=== PATIENT | male | born 1975 | race Caucasian/White ===

== ENCOUNTER 2023-11-12 17:21 | Emergency (ER) | payer SELFPAY ==
[2023-11-12] VITALS (19 sets, daily range): BP systolic 111–160; BP diastolic 53–91; PULSE 99–109; RESP 13–24; TEMP 36.8; O2SAT 96–99; BMI 46.1
--- NOTE | 2023-11-12 18:03 | ECG_ITS ---
[facility] Test Date: 2023-11-12 Pat Name: Eduardo Leon Department: Room: Gender: Male Equity Manager: : 1975 Requested By: Deandre Feldman Order Number: [id number] Blaise MD: Darrion Henry M.D. Measurements Intervals [place] Rate: 108 P: 0 KS: 0 QRS: -22 QRSD: 77 T: 15 QT: 342 QTc: 459 Interpretive Statements SUPRAVENTRICULAR TACHYCARDIA LOW QRS VOLTAGE IN PRECORDIAL LEADS [QRS DEFLECTION < 1.0 mV IN CHEST LEADS] INFERIOR MYOCARDIAL INFARCTION , PROBABLY OLD [40+ ms Q WAVE AND/OR ST/T ABNORMALITY IN II/aVF] ANTEROSEPTAL MYOCARDIAL INFARCTION , OF INDETERMINATE AGE [40+ ms Q WAVE IN V1-V4] No previous ECG available for comparison Electronically Signed On 11-14-2023 18:19:39 CDT by Darrion Henry M.D. [id number]
--- NOTE | 2023-11-12 18:03 | XRR_ITS ---
PROCEDURE INFORMATION: Exam: XR Chest Exam date and time: 11/12/2023 6:16 PM Age: 48 years old Clinical indication: Other: Lle edema; Additional info: Peripheral edema, distant lung sounds TECHNIQUE: Imaging protocol: Radiologic exam of the chest. Views: 1 view. COMPARISON: CT neck w con* [id number] 03/19/2017 8:39 AM FINDINGS: Lungs: Hypoinflated lungs. Pleural spaces: No pleural effusion or pneumothorax noted. Heart/Mediastinum: There is no cardiomegaly. Bones/joints: No acute osseous abnormality. Intraperitoneal space: There is no free intraperitoneal gas. XR/XR chest 1V portable [id number] IMPRESSION: No acute cardiopulmonary disease.
--- NOTE | 2023-11-12 18:04 | ED_ITS ---
HPI - Extremity Problem 2 General: Chief complaint: Extremity Problem,Nontraumatic Stated complaint: left leg swollen Time Seen by Provider: 11/12/23 17:27 Source: patient and family Mode of arrival: wheelchair Limitations: no limitations History of Present Illness: Patient is a 48-year-old male who presents to the emergency department with greater than 6 months of left lower extremity edema, stating that now he is starting to have swelling in his right leg as well. Specifically over the past couple weeks the pain and swelling has severely worsened, states he has had multiple rounds of antibiotics for this with no improvement. Denies any past medical history whatsoever, though he states that he has not followed up with a primary care provider in some time. Pain severely worsened with ambulation and weightbearing, and he notes that the swelling has extended all the way up to his groin and lower abdominal region. Denies history of congestive heart failure or liver cirrhosis. He is not having any chest pain, abdominal pain, fevers, nausea or vomiting. He is stating that he has felt somewhat short of breath, but states he thinks it is just because he is fat. Does not report taking any medications. MD Complaint: extremity pain and extremity swelling Onset (ago): month(s) Pain Consistency: constant Location: left and lower extremity Radiation: proximal Exacerbating factors: range of motion and weight bearing Associated symptoms: Reports short of breath; Deny chest pain or fever(s) Related Data Allergies Allergy/AdvReac Type Severity Reaction Status Date / Time No Known Allergies Allergy Verified 11/12/23 21:28 Review of Systems 2 General: Reports: 10 or more systems reviewed and unremarkable except in HPI and below Const: Denies: fever(s), chills or fatigue Eyes: Denies: change in vision ENMT: Denies: throat pain, ear or mastoid pain or nasal discharge Card: Denies: chest pain, palpitations, swelling of feet/ankles or lightheadedness Resp: Reports: dyspnea; Denies: productive cough or wheezing GI: Denies: abdominal pain, nausea, vomiting, diarrhea or constipation : Denies: flank pain, difficulty urinating, dysuria or urinary frequency Musc: Reports: extremity pain, extremity swelling and other (Left lower extremity redness); Denies: neck pain, back pain or joint pain Neuro: Denies: headache(s), numbness in extremities or weakness in extremities Physical Exam 2 Const: COMMON NORMALS: no acute distress, patient oriented x3 and no limitations GENERAL APPEARANCE: cooperative, comfortable and well developed NUTRITIONAL APPEARANCE: obese morbidly obese ORIENTATION/CONSCIOUSNESS: Yes awake, Yes oriented to person, Yes oriented to place and Yes oriented to time OTHER: Jaundiced HENMT: COMMON NORMALS: normocephalic, atraumatic and hearing grossly normal bilaterally HEAD & SCALP: normocephalic and atraumatic Eye: COMMON NORMALS: Equal, round and reactive pupils present and EOMs intact bilaterally SCLERA: scleral abnormal Laterality of scleral abnormality: positive bilateral scleral icterus PUPIL: Yes Equal, round and reactive pupils present Neck/C-Spine: COMMON NORMALS: full ROM, supple and no JVD Resp: COMMON NORMALS: normal respiratory effort, No retractions, No use of accessory muscles and clear to auscultation bilaterally AUSCULTATION: clear to auscultation bilaterally OTHER: Diminished breath sounds throughout Cardio: COMMON NORMALS: no JVD, regular rate, regular rhythm, No clicks present (Cardio) and No rub (Cardio) RATE: regular rate RHYTHM: regular rhythm HEART SOUNDS: Murmur heart sound present systolic Intensity: III/ Characteristics: blowing GI: COMMON NORMALS: Soft to palpation and non-tender INSPECTION: Yes central obesity PALPATION: Yes Soft to palpation RECTAL EXAM: Yes deferred Extremity: NARRATIVE EXTREMITY EXAM: Left lower extremity has 4+ pitting edema appreciable up to the knee, rest of exam past this limited due to patient's constrictive clothing. There are venous stasis changes as well as diffuse erythema from the foot up to the knee. Areas of skin breakdown scattered around the left ankle. The left lower extremity is diffusely tender to palpation, with limitation of range of motion secondary to the swelling. Does not endorse any distal sensory changes though pulses unable to be palpated secondary to the swelling Neuro: COMMON NORMALS: patient oriented x3, moves all extremities, no focal motor deficits and no sensory deficits noted SENSORIUM/ORIENTATION: Yes oriented to person, Yes oriented to place and Yes oriented to time Psych: COMMON NORMALS: mental status grossly normal and Normal thought process present THOUGHT PROCESS: Normal thought process present Course 2 Vital Signs: Vital signs: Vital Signs Temperature 98.2 F 11/12/23 17:46 Pulse Rate 108 H 11/12/23 22:00 Respiratory Rate 21 H 11/12/23 22:00 Blood Pressure 111/53 11/12/23 22:00 Pulse Oximetry 98 11/12/23 22:00 Oxygen Delivery Me thod Room Air 11/12/23 19:30 MDM - Extremity (Nontraumatic) Medical Decision Making This patient presented with left lower extremity swelling as his primary complaint, though this was noted to be chronic and worsening over the past 6 months, significantly worsening over the past week or so. He reported to me that he had no past medical history and does not see a regular doctor. On exam he was clearly jaundiced with scleral icterus, and the left lower extremity swelling was 4+ and pitting all the way up to the abdomen. EKG was obtained and reviewed with Dr. Sky, no acute STEMI though tachycardic rate 108. Patient had no complaints of chest pain, only some mild shortness of breath. CBC showed a white count of 20 as well as platelet count of 72. Lactic found to be elevated at 5.6, as well as total bilirubin elevation of 9.1. Synthetic liver function revealed an INR of 2.5, PT of 28, and PTT of 45.3. Suspect liver cirrhosis, and patient revealed to me that he is a 1 pints a day drinker of liquor. CT was obtained showing cirrhosis with moderate ascites, patient was not complaining of any hemoptysis or hematemesis, or severe retrosternal pain. Hepatitis panel negative. Discussed this patient thoroughly with both Dr. Sky and Dr. Chopra. Then spoke with Dr. Kapoor, hospitalist, who recommends patient be transferred for an MRCP as choledocholithiasis cannot be fully ruled out and we do not have these capabilities here at this time. Patient has not displayed any signs of altered mental status, family in room confirms that he has not had any issues with this. I spoke with Dr. Rey, hospitalist at [facility], who accepts patient for transfer. Patient has been started on Vanco and Zosyn due to the elevation in lactic, Dr. Rey has no further recommendations at this time. I discussed thoroughly with patient plan for transfer, all other questions and concerns addressed at this time and he is not complaining of any pain. Currently awaiting ambulance for ground transfer. Lab Data 11/12/23 18:11 11/12/23 18:52 Radiology Impressions Chest X-Ray 11/12/23 18:03 IMPRESSION: No acute cardiopulmonary disease. Abdomen/Pelvis CT 11/12/23 19:37 IMPRESSION: Cirrhosis with moderate ascites and recanalized umbilical vein. Multiple varices are noted. COMMENTS: Consistent with the [place] [employer]'s Incidental Findings Committee white paper (J Am Raymon Radiol 2018): Any incidental renal lesion less than 1 cm or classified as too small to characterize, or any incidental cystic renal lesion characterized as simple-appearing, is likely benign. No follow-up imaging is recommended for these lesions per consensus recommendations based on imaging criteria. Laboratory Results WBC 19.57 10^3/uL (3.29-11.43) H 11/12/23 18:11 RBC 3.50 10^6/uL (3.85-5.65) L 11/12/23 18:11 Hgb 12.50 g/dL (11.27-16.99) 11/12/23 18:11 Hct 37.1 % (37-53) 11/12/23 18:11 MCV 106.0 fl (82-101) H 11/12/23 18:11 MCH 35.7 pg (27-33) H 11/12/23 18:11 MCHC 33.7 g/dL (30-55) 11/12/23 18:11 RDW 16.0 % (12.1-15.1) H 11/12/23 18:11 Plt Count 72 10^3/cmm (157-399) L 11/12/23 18:11 MPV 10.7 fL (7.4-10.4) H 11/12/23 18:11 Lymph % (Auto) Not Reportable 11/12/23 18:11 [place] % (Auto) Not Reportable 11/12/23 18:11 Lymph # (Auto) Not Reportable 11/12/23 18:11 [place] # (Auto) Not Reportable 11/12/23 18:11 Total Counted 100 (0-100) 11/12/23 18:11 Atypical Lymphs % 0.0 % (0-5) 11/12/23 18:11 Absolute Neutrophils 13.7 10^3/cmm (1.4-6.5) H 11/12/23 18:11 Segmented Neutrophils 66 % 11/12/23 18:11 Band Neutrophils 4.0 % 11/12/23 18:11 Absolute Lymphocytes 2.3 10^3/cmm (1.2-3.4) 11/12/23 18:11 Lymphocytes (Manual) 12 % 11/12/23 18:11 Monocytes (Manual) 15.0 % 11/12/23 18:11 Absolute Monocytes 2.9 10^3/cmm (0.1-0.6) H 11/12/23 18:11 Eosinophils (Manual) 0 % 11/12/23 18:11 Absolute Eosinophils 0.0 10^3/cmm (0.0-0.7) 11/12/23 18:11 Basophils (Manual) 0.0 % 11/12/23 18:11 Absolute Basophils 0.0 10^3/cmm (0.0-0.2) 11/12/23 18:11 Metamyelocytes 1.0 % 11/12/23 18:11 Myelocytes 1.0 % 11/12/23 18:11 Promyelocytes 1.0 % 11/12/23 18:11 Smudge Cells Trace 11/12/23 18:11 Platelet Estimate Decreased (Normal) 11/12/23 18:11 Anisocytosis 1+ H 11/12/23 18:11 Macrocytosis 2+ H 11/12/23 18:11 PT 28.00 SECONDS (12.1-14.9) H 11/12/23 18:52 INR 2.51 (0.8-1.2) H 11/12/23 18:52 APTT 45.3 SECONDS (23.9-36.7) H 11/12/23 18:52 Sodium 131 mmol/L (136-145) L 11/12/23 18:52 Potassium 3.1 mmol/L (3.5-5.1) L 11/12/23 18:52 Chloride 95 mmol/L (98-107) L 11/12/23 18:52 Carbon Dioxide 21 mmol/L (22-29) L 11/12/23 18:52 Anion Gap 18.1 (5-19) 11/12/23 18:52 BUN 8 mg/dL (6-20) 11/12/23 18:52 Creatinine 0.4 mg/dL (0.7-1.2) L 11/12/23 18:52 GFR Calculation 229.6 mL/min (90-130) H 11/12/23 18:52 Glucose 137 mg/dL (65-115) H 11/12/23 18:52 Calculated Osmolality 272 mOsm/kg (285-295) L 11/12/23 18:52 Lactic Acid 5.6 mmol/L (0.5-2.2) H* 11/12/23 18:52 Lactic Acid (Sepsis) 3.9 mmol/L (0.5-2.2) H 11/12/23 22:06 Calcium 7.3 mg/dL (8.5-10.5) L 11/12/23 18:52 Total Bilirubin 9.1 mg/dL (0.15-1.2) H* 11/12/23 18:52 AST 73 U/L (0-40) H 11/12/23 18:52 ALT 29 U/L (0-41) 11/12/23 18:52 Alkaline Phosphatase 139 U/L (40-130) H 11/12/23 18:52 NT-Pro-B Natriuret Pep 841 pg/mL (0-125) H 11/12/23 18:52 Total Protein 7.1 g/dL (6.6-8.7) 11/12/23 18:52 Albumin 2.5 g/dL (3.5-5.2) L 11/12/23 18:52 Globulin 4.6 g/dL (1.3-4.6) 11/12/23 18:52 Hepatitis A IgM Ab Non-reactive (Nonreactive) 11/12/23 18:52 Hep Bs Antigen Non-reactive (Nonreactive) 11/12/23 18:52 Hep B Core IgM Ab Non-reactive (Nonreactive) 11/12/23 18:52 Hepatitis C Antibody Non-reactive (Nonreactive) 11/12/23 18:52 All radiology interpretation(s) finalized by discharge Discharge Plan Discharge Condition: Stable Referrals: Anthony Arauz NP [Family Provider] - Coding Level of Care Code ED Bead Inspector for Yareli Morse
[2023-11-12 18:20] LABS: Hematocrit 37.1 % (37-53); Mean Corpuscular HGB Conc 33.7 g/dL (30-55); Mean Corpuscular Hemoglobin 35.7 pg (27-33); Mean Platelet Volume 10.7 fL (7.4-10.4); Platelet Count 72 10^3/cmm (157-399); White Blood Count 19.57 10^3/uL (3.29-11.43)
[2023-11-12 18:54] LABS: Slide Review Slide Review Perform
[2023-11-12 18:55] LABS: Absolute Neutrophil 13.7 10^3/cmm (1.4-6.5); Absolute Segmented Neutrophil 12.9 10/cmm (1.6-7.1); Anisocytosis 1+; Band Neutrophils Absolute 0.8 10^3/cmm (0.0-1.2); Eosinophils 0 %; Lymphocytes 12 %; Lymphocytes Absolute 2.3 10^3/cmm (1.2-3.4); Macrocytosis 2+; Monocytes Absolute 2.9 10^3/cmm (0.1-0.6); Platelet Estimate Decreased (Normal); Segmented Neutrophils 66 %; Smudge Cells Trace; Total Cells Counted 100 (0-100)
[2023-11-12 19:32] LABS: INR 2.51 (0.8-1.2)
[2023-11-12 19:33] LABS: Partial Thromboplastin Time 45.3 SECONDS (23.9-36.7)
--- NOTE | 2023-11-12 19:37 | CTR_ITS ---
PROCEDURE INFORMATION: Exam: CT Abdomen And Pelvis With Contrast Exam date and time: 11/12/2023 8:08 PM Age: 48 years old Clinical indication: Abdominal pain; Additional info: Abd swelling, hold for CR TECHNIQUE: Imaging protocol: Computed tomography of the abdomen and pelvis with contrast. Radiation optimization: All CT scans at this facility use at least one of these dose optimization techniques: automated exposure control; mA and/or kV adjustment per patient size (includes targeted exams where dose is matched to clinical indication); or iterative reconstruction. Contrast material: OMNI 350; Contrast volume: 100 ml; Contrast route: INTRAVENOUS (IV); COMPARISON: CR (CHEST, ) 11/12/2023 6:16 PM RADIATION DOSE METRICS: Total DLP (mGy-cm): 1706 FINDINGS: Lungs: Lung bases are unremarkable. Liver: Liver cirrhosis with a 13 mm hypodensity in the right lobe which may represent a cyst. Gallbladder and biliary ducts: No intrahepatic or extrahepatic biliary ductal dilatation. The gallbladder is unremarkable with no radioopaque stone. Pancreas: The pancreas is unremarkable. Spleen: Splenomegaly. Adrenal glands: Adrenal glands are unremarkable. Kidneys and ureters: No hydronephrosis or nephrolithiasis. Bilateral simple renal cysts are present, as well as other subcentimeter hypodensities which are too small to characterize. Stomach and bowel: The stomach is not fully distended. Small and large bowel are normal in caliber without evidence of obstruction. Appendix: Normal appendix. Intraperitoneal space: Moderate ascites with perihepatic, perisplenic and pelvic fluid collection. Vasculature: Recanalized umbilical vein and multiple varices predominantly the esophageal varices are noted. There are subcutaneous varices also noted. There is no aortic aneurysm. Lymph nodes: No pathologically enlarged lymph nodes (by short axis size criteria). Urinary bladder: No focal wall thickening of the urinary bladder. Reproductive: Visualized portions of the male reproductive tract are unremarkable, though routine CT is limited in this regard. Bones/joints: No acute osseous abnormality. Soft tissues: There is a small fat containing umbilical hernia. Diffuse soft tissue edema. CT/CT abdomen pelvis w con* [id number] IMPRESSION: Cirrhosis with moderate ascites and recanalized umbilical vein. Multiple varices are noted. COMMENTS: Consistent with the [employer] [employer]'s Incidental Findings Committee white paper (J Am Raymon Radiol 2018): Any incidental renal lesion less than 1 cm or classified as too small to characterize, or any incidental cystic renal lesion characterized as simple-appearing, is likely benign. No follow-up imaging is recommended for these lesions per consensus recommendations based on imaging criteria.
[2023-11-12 19:45] LABS: Alanine Aminotransferase 29 U/L (0-41); Albumin Level 2.5 g/dL (3.5-5.2); Alkaline Phosphatase 139 U/L (40-130); Anion Gap 18.1 (5-19); Aspartate Amino Transferase 73 U/L (0-40); Blood Urea Nitrogen 8 mg/dL (6-20); Calcium 7.3 mg/dL (8.5-10.5); Carbon Dioxide 21 mmol/L (22-29); Chloride 95 mmol/L (98-107); Creatinine Clr Calc Pharmacy 355.9978; Globulin 4.6 g/dL (1.3-4.6); Glomerular Filtration Rate 229.6 mL/min (90-130); Glucose 137 mg/dL (65-115); NT Pro B Type Natriuretic Pept 841 pg/mL (0-125); Osmolality Calculated 272 mOsm/kg (285-295); Potassium 3.1 mmol/L (3.5-5.1); Sodium 131 mmol/L (136-145); Total Protein 7.1 g/dL (6.6-8.7)
[2023-11-12 19:58] LABS: Lactic Sepsis W/Reflex 5.6 mmol/L (0.5-2.2); Total Bilirubin 9.1 mg/dL (0.15-1.2)
[2023-11-12] MEDS: iohexol 350 mg/mL 500 mL Btl (per mL) IV (20:12)
[2023-11-12] MEDS: piperacillin-tazobactam 3.375 GM in sodium chloride 0.9% (plus) 50 ML IV (20:27)
[2023-11-12 20:58] LABS: Reflex Lactate Order REFLEX LACTIC ORDERD
[2023-11-12] MEDS: vancomycin 1,000 MG in sodium chloride 0.9% 250 ML 250 MG IV (21:28)
--- NOTE | 2023-11-12 21:46 | PC.NURSE ---
Assumed care of patient at 2124 from Jessika Benavides RN. Rounding with patient in room. He reports that he has no pain at this time and is doing well. Iv line flushed and new jacinta-guard applied to 20g iv cath in the LAC d/t blood leaking around insertion site. Pt denies pain at site. Flushes and pulls back without problems.
[2023-11-12 22:18] LABS: Hepatitis A Antibody IgM Non-Reactive (Nonreactive); Hepatitis B Core IgM Non-Reactive (Nonreactive); Hepatitis B Surface Antigen Non-Reactive (Nonreactive); Hepatitis C Virus Antibody Non-Reactive (Nonreactive)
[2023-11-12 22:32] LABS: Lactic Acid level (Lactate) 3.9 mmol/L (0.5-2.2)
[2023-11-12] MEDS: potassium chloride ER 20 mEq Tablet 40 MEQ PO (23:11)
[2023-11-12 23:46] LABS: Add Urine Microscopic? NO
[2023-11-12 23:48] LABS: Urine Appearance Clear (CLEAR)
--- NOTE | 2023-11-13 | PC.NURSE ---
@ [id number] report called to Dannielle joya rn at [facility].
[2023-11-13 00:02] LABS: UA Manual Slide Review YES; UA Slide Review UA Slide Review Perf; Urine Color Other (Yellow)
[2023-11-13 00:03] LABS: Add Urine Culture? No; Bacteria Urine TRACE /hpf; Hyaline Casts Urine 0-4 /lpf; Mucus Urine 2+ /hpf; RBC Urine 0-4 /hpf (0-2); Squamous Epithelial Cell Urine 0-4 /hpf (0-5)
[2023-11-13 00:04] LABS: Charge for UA Resulting for Rev
[2023-11-13 00:27] VITALS: BP 116/57; PULSE 98; RESP 21; O2SAT 97
[2023-11-13 00:33] VITALS: RESP 18
[2023-11-13] MEDS: morphine 4 mg/mL SDV 1 mL IVP (00:33)
== END 2023-11-13 00:40 | disposition short-term general hospital (02) ==
PROVIDERS: Emergency Provider Physician Assistant; Family Provider Nurse Practitioner Family
DX: R60.0 Localized edema (principal); R17 Unspecified jaundice
CPT/HCPCS: 36415; 71045; 74177; 80053; 80074; 81003; 83605; 83880; 85007; 85025; 85610; 85730; 87040; 93005; 96365; 96367; 96375; 99285; J2270; J2543; J3370; J7050

== ENCOUNTER 2023-11-18 13:14 | Inpatient (IN) | payer SELFPAY ==
[2023-11-18] VITALS (9 sets, daily range): BP systolic 118–149; BP diastolic 69–86; PULSE 83–103; RESP 16–18; TEMP 36.8–36.9; O2SAT 95–100; BMI 46.1; BMI 45.4
--- NOTE | 2023-11-18 14:08 | W.ED.EXTPRO ---
HPI - Extremity Problem General: Chief complaint: Wound/Laceration Stated complaint: LEFT LEG PAIN Time Seen by Provider: 11/18/23 13:49 History of Present Illness: 48-year-old man with recently diagnosed cirrhosis secondary to alcoholism who presents emergency room with a wound on his left leg. Apparently he was sent to [facility] for further workup for the cirrhosis and then was sent home. Family says that the wound care team there looked at the wound every day but did not do anything. He has redness of his leg with wounds on the front and back. These are weeping. He has pain associated with this. He appears jaundiced on exam. No known fevers. No altered mental status. No focal motor deficits. He is complaining of some generalized weakness. He has quite a bit of yellow drainage coming from the wounds. Related Data Allergies Allergy/AdvReac Type Severity Reaction Status Date / Time No Known Allergies Allergy Verified 11/18/23 13:26 Review of Systems Narrative: Constitutional symptoms: Negative except as documented in HPI. Skin symptoms: Negative except as documented in HPI. Eye symptoms: Negative except as documented in HPI. ENMT symptoms: Negative except as documented in HPI. Respiratory symptoms: Negative except as documented in HPI. Cardiovascular symptoms: Negative except as documented in HPI. Gastrointestinal symptoms: Negative except as documented in HPI. Genitourinary symptoms: Negative except as documented in HPI. Musculoskeletal symptoms: Negative except as documented in HPI. Neurologic symptoms: Negative except as documented in HPI. Psychiatric symptoms: Negative except as documented in HPI. Endocrine symptoms: Negative except as documented in HPI. [facility] ED PFSH: Medical History Hyperbilirubinemia Generalized weakness Hypercoagulable state Alcoholic cirrhosis Wound infection Physical Exam Narrative: EXAM NARRATIVE: General: Alert, no acute distress. Skin: Warm, dry. Patient appears jaundiced. There is a wound on the left lower extremity. Actually 2 wounds. 1 on the anterior and 1 on the posterior. There is skin squamatization. There is drainage. There is surrounding erythema. The erythema covers most of the calf and dawson area. Head: Normocephalic, atraumatic. Neck: Supple, trachea midline. Eye: Extraocular movements are intact. Ears, nose, mouth and throat: mucosa moist. Cardiovascular: Regular, Normal peripheral perfusion. Respiratory: Lungs are clear to auscultation, respirations are non-labored, breath sounds are equal, Symmetrical chest wall expansion. Gastrointestinal: Soft, Nontender, Non distended Musculoskeletal: Normal ROM, no deformity. Neurological: Alert and oriented, No focal neurological deficit observed. Psychiatric: Cooperative, appropriate mood & affect. Course Vital Signs: Vital signs: Vital Signs Temperature 98.2 F 11/18/23 13:22 Pulse Rate 100 11/18/23 14:38 Respiratory Rate 16 11/18/23 14:38 Blood Pressure 133/75 11/18/23 14:38 Pulse Oximetry 97 11/18/23 14:38 Oxygen Delivery Me thod Room Air 11/18/23 14:38 MDM - Extremity (Nontraumatic) Medical Decision Making Medical decision making: Differential diagnosis including but not limited to and based on the above HPI, review of systems and physical exam: In this patient with a wound would have concern for sepsis. Necrotizing fasciitis. Also with him having cirrhosis basic lab work to evaluate this including coags are being done. Orders placed to evaluate differential diagnosis based on the above differential, HPI and physical exam Lab Review: Laboratory results were reviewed and interpreted by myself the emergency room physician. Patient has a white count of 21,000. This is up from 19 last week. Hemoglobin is fairly normal at 12.4. Platelets are low at 46. Sodium is low at 125. This is lower than it was last week. He was up to the 130s. BUN/creatinine are normal 8 and 0.4. Bilirubin is high at 8. ISAT and ALT are 80 and 26. Alk phos is not elevated. CRP and ESR are quite elevated. X-ray of the tibia and fibula shows no acute fractures. No obvious air. There is a lot of soft tissue swelling. This was reviewed and interpreted by myself the emergency room physician. I also reviewed the radiology report. I reviewed the patient's medical record. Records from [place] have been requested. Model for End-Stage Liver Disease (Combined MELD) from [employer] on 11/18/2023 All calculations should be rechecked by clinician prior to use RESULT SUMMARY: 30 points MELD 3.0 72.7 % Estimated 90-day survival INPUTS: Equation ?> 2 = MELD 3.0 (currently recommended by OPTN) Age added to the liver transplant waiting list, years ?> 1 = >=8 Sex ?> 0 = Male Creatinine ?> 0.4 mg/dL Bilirubin ?> 8.1 mg/dL INR ?> 2.3 Sodium ?> 125 mEq/L Albumin ?> 1.9 g/dL Had dialysis twice, or 24 hours of CVVHD, within a week prior to the serum creatinine test ?> 0 = No MELDNa/MELD-Na Score for Liver Cirrhosis from [employer] on 11/18/2023 All calculations should be rechecked by clinician prior to use RESULT SUMMARY: 30 points MELD-Na Score 27 - 32% Estimated 90-Day Mortality INPUTS: Dialysis at least twice in the past week ?> 0 = No Creatinine ?> 0.4 mg/dL Bilirubin ?> 8.1 mg/dL INR ?> 2.3 Sodium ?> 125 mEq/L Reexamination: Patient has remained stable. No increased work of breathing. No altered mental status. No focal motor deficits. Wound continues to drain yellow drainage. Consultation: I spoke with Dr. Mcbride who is on-call for podiatry. He will evaluate the patient for possible debridement. CT scan was ordered to evaluate/rule out necrotizing fasciitis Consultation: I spoke with Dr. Spears who is on-call for the hospitalist service who agrees to admission. He recommends ordering FFP and vitamin K which has been done. Assessment and plan: Wound infection Possible sepsis Alcoholic cirrhosis Thrombocytopenia Hypercoagulability Hyperbilirubinemia ?Possible sepsis. Source to be his left lower extremity. Patient is on Keflex. Lactate is elevated but down from when he was here last. White count is elevated. Borderline tachycardia with a normal blood pressure. - holding on fluids at this point because patient appears fluid overloaded and his blood pressure is normal.. -Broad-spectrum antibiotics were administered. Zyvox and cefepime. -Sepsis quality measures. -Lactic acid with a reflex was ordered. -Blood cultures were ordered. ?MELD score with a fairly high mortality rate over the next 90 days. At around 30%. ?Vitamin K and FFP were ordered for hypercoagulability. -I discussed the patient with the hospitalist on-call who is admitting the patient. - Discussed findings and plan with patient. Answered any questions. - All laboratory values were reviewed and interpreted personally by myself, the ER physician - All imaging was reviewed and interpreted personally by myself, the ER physician. - Evaluation and treatment of this problem were appropriate in the emergency setting Critical care: -I spent a total of >35 minutes of critical care time managing the patient, independent of any other practitioner. -The time involved in the performance of separately reportable procedures was not counted towards critical care time. Lab Data 11/18/23 14:12 11/18/23 14:12 Radiology Impressions Tibia/Fibula X-Ray 11/18/23 14:55 IMPRESSION: 1. Tibia and fibula are intact. 2. Diffuse soft tissue edema. Laboratory Results WBC 21.40 10^3/uL (3.29-11.43) H 11/18/23 14:12 RBC 3.46 10^6/uL (3.85-5.65) L 11/18/23 14:12 Hgb 12.40 g/dL (11.27-16.99) 11/18/23 14:12 Hct 36.6 % (37-53) L 11/18/23 14:12 MCV 105.8 fl (82-101) H 11/18/23 14:12 MCH 35.8 pg (27-33) H 11/18/23 14:12 MCHC 33.9 g/dL (30-55) 11/18/23 14:12 RDW 14.9 % (12.1-15.1) 11/18/23 14:12 Plt Count 46 10^3/cmm (157-399) L 11/18/23 14:12 MPV 10.4 fL (7.4-10.4) 11/18/23 14:12 Neut % (Auto) 77.6 % 11/18/23 14:12 Lymph % (Auto) 10.7 % 11/18/23 14:12 Harrison % (Auto) 7.6 % 11/18/23 14:12 Eos % (Auto) 0.7 % 11/18/23 14:12 Baso % (Auto) 0.3 % 11/18/23 14:12 Neut # (Auto) 16.59 10^3/uL (1.8-7.7) H 11/18/23 14:12 Lymph # (Auto) 2.3 10^3/uL (0.8-4.8) 11/18/23 14:12 Harrison # (Auto) 1.6 10^3/uL (0.2-0.9) H 11/18/23 14:12 Eos # (Auto) 0.1 10^3/uL (0.0-0.8) 11/18/23 14:12 Baso # (Auto) 0.1 10^3/uL (0.0-0.1) 11/18/23 14:12 Nucleated RBC % (auto) 0 % 11/18/23 14:12 Nucleated RBCs # 0.0 /100WBC 11/18/23 14:12 ESR 37 mm/hr (0-10) H 11/18/23 14:12 PT 26.60 SECONDS (12.1-14.9) H 11/18/23 14:15 INR 2.35 (0.8-1.2) H 11/18/23 14:15 APTT 48.1 SECONDS (23.9-36.7) H 11/18/23 14:15 Sodium 125 mmol/L (136-145) L 11/18/23 14:12 Potassium 3.6 mmol/L (3.5-5.1) 11/18/23 14:12 Chloride 96 mmol/L (98-107) L 11/18/23 14:12 Carbon Dioxide 24 mmol/L (22-29) 11/18/23 14:12 Anion Gap 8.6 (5-19) 11/18/23 14:12 BUN 8 mg/dL (6-20) 11/18/23 14:12 Creatinine 0.4 mg/dL (0.7-1.2) L 11/18/23 14:12 GFR Calculation 229.6 mL/min (90-130) H 11/18/23 14:12 Glucose 102 mg/dL (65-115) 11/18/23 14:12 Calculated Osmolality 259 mOsm/kg (285-295) L 11/18/23 14:12 Lactic Acid 3.8 mmol/L (0.5-2.2) H 11/18/23 14:12 Calcium 7.0 mg/dL (8.5-10.5) L 11/18/23 14:12 Total Bilirubin 8.1 mg/dL (0.15-1.2) H* 11/18/23 14:12 AST 80 U/L (0-40) H 11/18/23 14:12 ALT 26 U/L (0-41) 11/18/23 14:12 Alkaline Phosphatase 147 U/L (40-130) H 11/18/23 14:12 C-Reactive Protein 53.2 mg/L (0.0-4.9) H 11/18/23 14:12 Total Protein 7.8 g/dL (6.6-8.7) 11/18/23 14:12 Albumin 1.9 g/dL (3.5-5.2) L 11/18/23 14:12 Globulin 5.9 g/dL (1.3-4.6) H 11/18/23 14:12 All radiology interpretation(s) finalized by discharge ED provider radiology interpretation(s): Medical decision making: Differential diagnosis including but not limited to and based on the above HPI, review of systems and physical exam: Orders placed to evaluate differential diagnosis based on the above differential, HPI and physical exam Lab Review: Laboratory results were reviewed and interpreted by myself the emergency room physician. I reviewed the patient's medical record. Reexamination: Discharge Plan Discharge Patient Disposition: Admitted As Inpatient Admit Provider: Carmen Spears Clinical Impression: Wound infection, Alcoholic cirrhosis, Hypercoagulable state, Generalized weakness, Hyperbilirubinemia Condition: Stable Coding Level of Care Code ED Plastic Sheeting Cutter for Yareli Morse
[2023-11-18 14:27] LABS: Basophils # 0.1 10^3/uL (0.0-0.1); Basophils % 0.3 %; Eosinophils # 0.1 10^3/uL (0.0-0.8); Eosinophils % 0.7 %; Hematocrit 36.6 % (37-53); Lymphocytes # 2.3 10^3/uL (0.8-4.8); Lymphocytes % 10.7 %; Mean Corpuscular HGB Conc 33.9 g/dL (30-55); Mean Corpuscular Hemoglobin 35.8 pg (27-33); Mean Corpuscular Volume 105.8 fl (82-101); Mean Platelet Volume 10.4 fL (7.4-10.4); Monocytes # 1.6 10^3/uL (0.2-0.9); Monocytes % 7.6 %; Neutrophils # 16.59 10^3/uL (1.8-7.7); Neutrophils % 77.6 %; Nucleated Red Blood Cells % 0 %; Platelet Count 46 10^3/cmm (157-399); Red Blood Count 3.46 10^6/uL (3.85-5.65); Red Cell Distribution Width 14.9 % (12.1-15.1)
[2023-11-18 14:32] LABS: Erythrocyte Sedimentation Rate 37 mm/hr (0-10)
[2023-11-18 14:45] LABS: INR 2.35 (0.8-1.2)
[2023-11-18 14:46] LABS: Partial Thromboplastin Time 48.1 SECONDS (23.9-36.7)
[2023-11-18 14:48] LABS: Lactic Sepsis W/Reflex 3.8 mmol/L (0.5-2.2)
[2023-11-18 14:51] LABS: Alanine Aminotransferase 26 U/L (0-41); Albumin Level 1.9 g/dL (3.5-5.2); Alkaline Phosphatase 147 U/L (40-130); Anion Gap 8.6 (5-19); Aspartate Amino Transferase 80 U/L (0-40); Blood Urea Nitrogen 8 mg/dL (6-20); C Reactive Protein 53.2 mg/L (0.0-4.9); Carbon Dioxide 24 mmol/L (22-29); Chloride 96 mmol/L (98-107); Creatinine Clr Calc Pharmacy 355.9978; Globulin 5.9 g/dL (1.3-4.6); Glomerular Filtration Rate 229.6 mL/min (90-130); Glucose 102 mg/dL (65-115); Osmolality Calculated 259 mOsm/kg (285-295); Potassium 3.6 mmol/L (3.5-5.1); Sodium 125 mmol/L (136-145); Total Protein 7.8 g/dL (6.6-8.7)
[2023-11-18 14:55] LABS: Total Bilirubin 8.1 mg/dL (0.15-1.2)
--- NOTE | 2023-11-18 14:55 | XRR_ITS ---
PROCEDURE INFORMATION: Exam: XR Left Tibia and Fibula Exam date and time: 11/18/2023 3:05 PM Age: 48 years old Clinical indication: Swelling, leg or foot; Patient HX: Lle swelling redness; Additional info: Rule out osteo TECHNIQUE: Imaging protocol: Radiologic exam of the left tibia and fibula. Views: 2 views. COMPARISON: No relevant prior studies available. FINDINGS: Bones/joints: No evidence of acute osseous erosion, fracture or subluxation. Tibia and fibula are intact. Soft tissues: Diffuse soft tissue edema. XR/XR tibia fibula LT 2V [id number] IMPRESSION: 1. Tibia and fibula are intact. 2. Diffuse soft tissue edema.
--- NOTE | 2023-11-18 15:06 | CTR_ITS ---
PROCEDURE INFORMATION: Exam: CT Left Lower Extremity, Leg Exam date and time: 11/18/2023 3:38 PM Age: 48 years old Clinical indication: Swelling, leg or foot; Additional info: Infection TECHNIQUE: Imaging protocol: CT of the left lower extremity without contrast was performed. Exam focused on the lower leg. Radiation optimization: All CT scans at this facility use at least one of these dose optimization techniques: automated exposure control; mA and/or kV adjustment per patient size (includes targeted exams where dose is matched to clinical indication); or iterative reconstruction. COMPARISON: CR XR tibia fibula LT 2V [id number] 11/18/2023 3:05 PM RADIATION DOSE METRICS: Total DLP (mGy-cm): 765 FINDINGS: Bones/joints: Tibia and fibula are intact. No evidence of fracture or malalignment. No evidence of aggressive osseous lesion. Soft tissues: Prominent soft tissue edema and skin thickening, distal greater than proximal compatible with cellulitis, volume overload or lymphedema in the proper clinical setting. No discrete fluid collection to suggest abscess. No evidence of soft tissue air to suggest gas-forming infection/fasciitis. No evidence of deep compartment involvement. Muscles and tendons are grossly intact. CT/CT lower leg LT wo con* [id number] IMPRESSION: 1. Diffuse soft tissue edema without discrete fluid collection or underlying acute osseous abnormality.
--- NOTE | 2023-11-18 15:07 | PM.CONSULT ---
Providers/Reason For Consult Consulting Physician/Specialty*: Saul Mcbride D.P.M. Reason for Consult*: Ulceration and cellulitis left leg History of Present Illness History of Present Illness Eduardo Leon is a 48 year old male presents to emergency department with complaints of a wound to the left leg with redness, drainage and swelling. Patient is nondiabetic, past medical history includes alcohol induced hepatitis, was recently worked up at [facility] in [place] for transaminitis. At discharge she was placed on spironolactone, Lasix, Keflex and pain medication. He reports being on fluid restriction at 1800 mL/day, he last ate this morning, eggs, sausage, toast, has been drinking water throughout the day, approximately 1 L since noon. Patient denies any subjective nausea, vomiting, fever, chills, shortness of breath or chest pain. Review of Systems General: Reports: 10 or more systems reviewed and unremarkable except in HPI and below Const: Denies: fever(s) or chills Eyes: Denies: change in vision Card: Denies: chest pain or palpitations Resp: Denies: dyspnea or productive cough GI: Denies: abdominal pain, nausea or vomiting : Denies: flank pain Musc: Reports: extremity swelling, joint stiffness and deformity Skin/Breast: Reports: erythema, sores, changes in skin color, dry skin, nail changes and change in hair Neuro: Reports: numbness in extremities, sensory changes and difficulty walking Psych: Denies: suicidal ideation Endo: Denies: change in body appearance Kristian/Lymph: Denies: tender lymph nodes Medications/Allergies Allergies Allergy/AdvReac Type Severity Reaction Status Date / Time No Known Allergies Allergy Verified 11/18/23 13:26 PFSH Acute PFSH: Medical History Hyperbilirubinemia Generalized weakness Hypercoagulable state Alcoholic cirrhosis Wound infection Vitals/I&O/Wt Last Vital Signs Temp 98.2 F 11/18/23 13:22 Pulse 100 11/18/23 14:38 Resp 16 11/18/23 14:38 BP 133/75 11/18/23 14:38 Pulse Ox 97 11/18/23 14:38 O2 Del Method Room Air 11/18/23 14:38 Weight last 48 hrs Weight 350 lb Physical Exam Narrative: GENERAL: Patient is alert and oriented ?3 and in no acute distress. The following is a focused bilateral lower extremity exam. VASCULAR: Dorsalis pedis palpable +2 bilaterally. Posterior tibial arteries palpable bilaterally. Capillary refill time less than 3 seconds to the distal hallux bilaterally. Calf is supple and nontender proximally and distally. +2 edema to the left lower extremity. NEUROLOGICAL: Protective sensation intact 8/10 sites, tested with Coward Malik monofilament to bilateral feet. DERMATOLOGICAL: Wound at the left lower one third anterior leg and left posterior leg not exposed to fat layer there is periwound erythema and cellulitis of the left leg streaking to the proximal one third of the leg. MUSCULOSKELETAL: No crepitus with palpation of soft tissue of the left leg. Pain to palpation left leg wounds. Muscle strength +5 in all 3 planes bilateral foot and ankle. Data 11/18/23 14:12 11/18/23 14:12 Micro: Microbiology 11/18/23 14:15 Blood Culture - Preliminary Blood SPECIMEN COLLECTED 11/18/23 14:12 Blood Culture - Preliminary Blood SPECIMEN COLLECTED A&P Assessment and plan (1) Alcoholic hepatitis: Qualifiers: Ascites presence: unspecified Qualified Code(s): K70.10 - Alcoholic hepatitis without ascites (2) Cellulitis and abscess of left leg: (3) Venous stasis ulcer: Qualifiers: Venous stasis ulcer site: calf Varicose vein presence: without varicose veins Laterality: left Non-pressure ulcer stage: limited to breakdown of skin Qualified Code(s): I87.2 - Venous insufficiency (chronic) (peripheral); L97.221 - Non-pressure chronic ulcer of left calf limited to breakdown of skin Plan 48-year-old male with cellulitis left leg and venous stasis ulceration left anterior and posterior leg Patient is afebrile, denies nausea, fevers or chills WBC 21.4 ESR 37 CRP 53.2 mg/L PT 26.6 INR 2.35 APTT 48.1 Leg x-ray and leg CT scan NEGATIVE for soft tissue emphysema, foreign body, abscess or acute osseous abnormality. Mechanical debridement with 4 x 4 gauze, wound culture taken left leg wound sent to microbiology Dressing of 4 x 4 gauze, Kerlix and tape N.p.o. at midnight Scheduled for surgical debridement of left leg wounds tomorrow 11/19/2023 Consult Attestations Medical Necessity Statement: Cellulitis, failed outpatient antibiotics requires IV antibiotics and surgical debridement Coding Level of Care Code Acute Code for Chg Fwd Diagnoses Alcoholic hepatitis, unspecified whether ascites present K70.10 Ascites presence: unspecified Cellulitis and abscess of left leg L03.116; L02.416 Venous stasis ulcer of left calf limited to breakdown of skin without varicose veins I87.2; L97.221 Venous stasis ulcer site: calf Varicose vein presence: without varicose veins Laterality: left Non-pressure ulcer stage: limited to breakdown of skin
[2023-11-18] MEDS: cefepime 2,000 MG in sodium chloride 0.9% (plus) 50 ML 100 MG IV (15:25)
--- NOTE | 2023-11-18 15:38 | PM.HP ---
Providers/Chief Complaint Admitting Physician: Carmen Spears MD Chief Complaint: LEFT LEG PAIN History of Present Illness Eduardo Leon is a 48 year old male who was transferred to [facility] for abnormal transaminases with concern for cholangitis, patient was diagnosed with alcohol-related liver injury/hepatitis, he was discharged on Lasix spironolactone and Keflex along opioids. Patient is stating that he started noticing worsening of swelling and redness of his left leg 4 days before his transfer to [facility]. He has not noticed any fever chills nausea vomiting. He is presented today for worsening of skin ulcer with more swelling and pain. Hospital service has been requested to admit the patient, Dr. Mcbride has requested CT scan of lower extremity, his INR is above 2, I requested vitamin K and FFP Patient is septic with tachycardia, high lactic acid, leukocytosis, Judicious use of IV fluids because of liver cirrhosis related hypervolemia patient has anasarca His blood pressure is stable Review of Systems Const: Denies: fever(s) Eyes: Denies: change in vision ENMT: Denies: throat pain Card: Denies: chest pain Resp: Reports: dyspnea GI: Reports: nausea : Denies: flank pain Skin/Breast: Reports: pruritus, erythema, skin tenderness, skin swelling, sores and non-healing lesions Medications/Allergies Allergies Allergy/AdvReac Type Severity Reaction Status Date / Time No Known Allergies Allergy Verified 11/18/23 13:26 PFSH Acute PFSH: Medical History Hyperbilirubinemia Generalized weakness Hypercoagulable state Alcoholic cirrhosis Wound infection Vitals/I&O/Wt Last Vital Signs Temp 98.2 F 11/18/23 13:22 Pulse 100 11/18/23 14:38 Resp 16 11/18/23 14:38 BP 133/75 11/18/23 14:38 Pulse Ox 97 11/18/23 14:38 O2 Del Method Room Air 11/18/23 14:38 Weight last 48 hrs Weight 158.757 kg Physical Exam Narrative: Anasarca Awake and alert Morbidly obese GCS 15 Scleral icterus Left lower extremity severe edema Tender to palpate Superficial skin has been sloughed off which has been replaced by necrotic tissue There is purulent cellulitis at the edges of the wound Venous stasis ulcer above the ankle S1, S2 Currently on room air Hemodynamic stable Data 11/18/23 14:12 11/18/23 14:12 Micro: Microbiology 11/18/23 14:15 Blood Culture - Preliminary Blood SPECIMEN COLLECTED 11/18/23 14:12 Blood Culture - Preliminary Blood SPECIMEN COLLECTED A&P Assessment and plan (1) Cellulitis and abscess of left leg: (2) Alcoholic hepatitis: (3) Coagulopathy: (4) Wet gangrene: (5) Anasarca: (6) Venous stasis ulcer: (7) Sepsis: Plan Wet gangrene Seems to be worsening of venous stasis ulcer Patient not endorsing recent trauma Hypervolemic Anasarca Start broad-spectrum antibiotics Consulted Dr. Mcbride Keep him n.p.o. Requested CT scan of lower extremity for concern related to necrotizing fasciitis Sepsis due to gangrene Criteria met with leukocytosis, high lactic acid, tachycardia I will only give him 1 L of fluid for now patient is has anasarca We cannot give 30 mL/kg of of septic bolus at this point Start vancomycin and Zosyn Patient needs to be diuresed after getting bolus I am concerned that patient may need oxygen with vascular congestion worsening Liver induced coagulopathy Will request vitamin K and 1 unit FFP to bring INR below 1.7 in case patient goes for surgical intervention Alcohol-related liver injury Maddrey's score is 58.6 Poor prognosis He may benefit from local therapy at this point however considering active infection I would not start him on steroids at this point which may worsen his underlying infection Hypervolemia Will request echo as well Full code N.p.o. for now Start IV antibiotics DVT prophylaxis not needed patient is already has coagulopathy Attestations Medical Necessity Statement*: More than 2 midnights anticipated Diagnoses Cellulitis and abscess of left leg L03.116; L02.416 Alcoholic hepatitis K70.10 Coagulopathy D68.9 Wet gangrene I96 Anasarca R60.1 Venous stasis ulcer I83.009; L97.909 Sepsis A41.9
[2023-11-18] MEDS: phytonadione (ADULT) 10 MG in sodium chloride 0.9% 50 ML 153 MG IV (16:06)
[2023-11-18] MEDS: sodium chloride 0.9% 1,000 ML 999 ML IV (16:11)
[2023-11-18 16:12] LABS: Reflex Lactate Order REFLEX LACTIC ORDERD
--- NOTE | 2023-11-18 16:22 | ECG_ITS ---
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 Measurements Intervals Nerinx Rate: 101 P: 0 NV: 0 QRS: 23 QRSD: 101 T: 81 QT: 383 QTc: 499 Interpretive Statements Multifocal atrial rhythm WITH ABERRANT CONDUCTION OR VENTRICULAR PREMATURE COMPLEXES POSSIBLE ANTERIOR MYOCARDIAL INFARCTION , PROBABLY OLD [30 ms Q WAVE IN V3/V4, OR R < 0.2 mV IN V4] ABNORMAL RHYTHM ECG Compared to ECG 11/12/2023 18:08:45 Ventricular premature complex(es) now present Aberrant conduction of supraventricular beat(s) now present Supraventricular tachycardia no longer present Myocardial infarct finding still present Electronically Signed On 11-19-2023 01:23:59 CDT by Javier Devlin M.D. [id number]
[2023-11-18] MEDS: linezolid premix 600 MG/300 ML PREMIX 300 MG IV (16:34)
[2023-11-18 16:54] LABS: Lactic Acid level (Lactate) 3.1 mmol/L (0.5-2.2)
[2023-11-18] MEDS: pantoprazole 40 mg SDV IVP (17:52)
[2023-11-18] MEDS: morphine IR 15 mg Tablet PO (19:04)
--- NOTE | 2023-11-18 19:19 | P.PHAVANC_ITS ---
Vancomycin Goal - Goal Vancomycin Goal:: 15-20 mg/L Vancomycin Indication:: Other (SEPSIS) - Therapy Current therapy:: Pip/Tazo (3.375 GM IVPB Q8H) Day of therpy:: Day []of [] . Actual body weight (kg): 156.172 kg Mccarley body weight: 79.9 KG Dosing weight (kg): 110.40 KG - Data Labs: WBC 21.40 10^3/uL (3.29-11.43) H 11/18/23 14:12 RBC 3.46 10^6/uL (3.85-5.65) L 11/18/23 14:12 Hgb 12.40 g/dL (11.27-16.99) 11/18/23 14:12 Hct 36.6 % (37-53) L 11/18/23 14:12 MCV 105.8 fl (82-101) H 11/18/23 14:12 MCH 35.8 pg (27-33) H 11/18/23 14:12 MCHC 33.9 g/dL (30-55) 11/18/23 14:12 RDW 14.9 % (12.1-15.1) 11/18/23 14:12 Sodium 125 mmol/L (136-145) L 11/18/23 14:12 Potassium 3.6 mmol/L (3.5-5.1) 11/18/23 14:12 Chloride 96 mmol/L (98-107) L 11/18/23 14:12 Carbon Dioxide 24 mmol/L (22-29) 11/18/23 14:12 Anion Gap 8.6 (5-19) 11/18/23 14:12 BUN 8 mg/dL (6-20) 11/18/23 14:12 Creatinine 0.4 mg/dL (0.7-1.2) L 11/18/23 14:12 GFR Calculation 229.6 mL/min (90-130) H 11/18/23 14:12 Last dialysis session:: N/A Drug administration history:: Medications Piperacillin Sod/Tazobactam (Sod 3.375 gm/ Sodium Chloride) 50 mls @ 12.5 mls/hr IV Q8H SERA; Protocol Vancomycin HCl (Vancocin) 3,000 mg in 600 mls @ 200 mls/hr IV ONCE ONE Stop: 11/18/23 22:14 Vancomycin HCl (Vancocin) 1,500 mg in 300 mls @ 200 mls/hr IV Q8H [facility] Treatment plan:: new consult Regimen:: Vancomycin 3000 mg loading dose then 1500 mg IVPB q8h Follow up:: Pharmacy to monitor daily. Scr daily with am labs
[2023-11-18] MEDS: vancomycin 3,000 MG/600 ML PIGGYBACK 200 MG IV (19:52)
[2023-11-18] MEDS: piperacillin-tazobactam 3.375 GM in sodium chloride 0.9% (plus) 50 ML IV (23:00)
[2023-11-19] VITALS (20 sets, daily range): BP systolic 102–183; BP diastolic 60–82; PULSE 78–104; RESP 12–19; TEMP 36.6–37.4; O2SAT 90–98
[2023-11-19] MEDS: sodium chloride 0.9% (100 ml) 100 ML (00:03)
[2023-11-19] MEDS: morphine IR 15 mg Tablet PO ×3 (01:05→21:27)
[2023-11-19] MEDS: vancomycin 1,500 MG/300 ML PIGGYBACK 200 MG IV ×3 (04:48→20:09)
[2023-11-19 05:23] LABS: Basophils # 0.1 10^3/uL (0.0-0.1); Basophils % 0.4 %; Eosinophils # 0.2 10^3/uL (0.0-0.8); Eosinophils % 1.4 %; Hematocrit 31.1 % (37-53); Lymphocytes % 14.8 %; Mean Corpuscular HGB Conc 32.5 g/dL (30-55); Mean Corpuscular Hemoglobin 35.9 pg (27-33); Mean Corpuscular Volume 110.7 fl (82-101); Mean Platelet Volume 10.9 fL (7.4-10.4); Monocytes # 1.2 10^3/uL (0.2-0.9); Monocytes % 9.1 %; Neutrophils # 9.71 10^3/uL (1.8-7.7); Neutrophils % 71.5 %; Nucleated Red Blood Cells % 0 %; Platelet Count 35 10^3/cmm (157-399); Red Blood Count 2.81 10^6/uL (3.85-5.65); Red Cell Distribution Width 14.7 % (12.1-15.1); White Blood Count 13.58 10^3/uL (3.29-11.43)
[2023-11-19 05:32] LABS: INR 2.23 (0.8-1.2)
[2023-11-19 05:42] LABS: Alanine Aminotransferase 20 U/L (0-41); Albumin Level 1.8 g/dL (3.5-5.2); Alkaline Phosphatase 123 U/L (40-130); Anion Gap 9.6 (5-19); Aspartate Amino Transferase 67 U/L (0-40); Blood Urea Nitrogen 5 mg/dL (6-20); Calcium 6.5 mg/dL (8.5-10.5); Carbon Dioxide 23 mmol/L (22-29); Chloride 100 mmol/L (98-107); Creatinine Clr Calc Pharmacy 470.2597; Globulin 4.8 g/dL (1.3-4.6); Glucose 98 mg/dL (65-115); Magnesium 1.7 mg/dL (1.7-2.3); Osmolality Calculated 265 mOsm/kg (285-295); Potassium 3.6 mmol/L (3.5-5.1); Sodium 129 mmol/L (136-145); Total Protein 6.6 g/dL (6.6-8.7)
[2023-11-19 05:55] LABS: Total Bilirubin 7.8 mg/dL (0.15-1.2)
[2023-11-19] MEDS: piperacillin-tazobactam 3.375 GM in sodium chloride 0.9% (plus) 50 ML IV ×3 (06:24→21:27)
[2023-11-19] MEDS: sennosides-docusate Tablet 1 TAB PO (08:08)
[2023-11-19] MEDS: pantoprazole 40 mg SDV IVP ×2 (08:08→17:04)
--- NOTE | 2023-11-19 10:13 | PC.PHAR ---
Patient discharged Saturday from [facility] with pain medication and Antibiotic. Unable to make contact with pharmacy , [facility] is down . Will follow up this afternoon .
--- NOTE | 2023-11-19 10:19 | PC.CHAP ---
Pastoral Care Encounter/Spiritual Assessment Type of Contact [] Declined video engineer visit [] Patient/Family/Request visit [] Outpatient visit [] Follow-up visit [] Physician referral [] Code/Alert [x] Routine visit [] Staff referral [] Actively dying [] Patient sleeping [x] Family support [] [] Out of room [] Palliative care [] [] Receiving care in room [] Pre-surgical visit [] Trauma [] Long length of stay [] ICU visit [] Other: Relational/Emotional Strength [x] Patient feels connected with others/family/visitors/staff [] Distress [] Loneliness/isolation [] Abandonment Spirituality of Patient [x] Person of Jody [] Attends Catholic of their Jody [x] Believes in Prayer [] Reads Bible or Holiness materials [] There are Spiritual issues to be addressed Program Or Project Administrator Interventions [x] Prayer [x] Active listening [x] Non-anxious presence [x] Spiritual/emotional support [] Crisis/trauma care [] Spiritual counseling [] Bereavement support [] Provided bereavement packet [] Provided Bible/devotional materials [] Provided toy/stuffed animal, coloring book to patient or family member [] Provided Communion [] Anointing/[place] [] Salvation [x] Completed spiritual assessment [] Other: Impact on Illness or Injury [] Angry [] Fearful [] Anxious [] Often cries [] Exhaustion [] Unable to work [] Unable to attend methodist [] Unable to walk/stand [] Unable to read [] Unable to drive [] Unable to eat/drink [] Unable to sleep [] Unable to be with family [] Patient intubated [] Other: Summary Time spent with patient 10 min
--- NOTE | 2023-11-19 11:22 | P.PN_ITS ---
Subjective 2 Subjective: No fever Hemodynamically stable Replenish electrolytes Going for surgical debridement today Vitals/I&O/Wt Last Vital Signs Temp 97.9 F 11/19/23 07:45 Pulse 88 11/19/23 10:22 Resp 16 11/19/23 10:22 BP 125/79 11/19/23 07:45 Pulse Ox 96 11/19/23 10:22 O2 Del Method Room Air 11/19/23 10:22 11/18/23 11/19/23 11/19/23 22:59 06:59 14:59 Intake Total 1401 / 1401 1551.000 / 2952.000 50 / 50 Output Total 150 / 150 Balance 1251 / 1251 1551.000 / 2802.000 50 / 50 Weight last 48 hrs Weight 157.896 kg Weight 156.172 kg Weight 158.757 kg Physical Exam 2 Narrative: Left leg and foot covered with dressing Pleasant and cooperative Left foot no vascular compromise Hemodynamic stable Anasarca Awake and alert Currently on room air S1, S2 Data 11/19/23 04:35 11/19/23 04:35 Micro: Microbiology 11/18/23 14:15 Blood Culture - Preliminary Blood SPECIMEN COLLECTED 11/18/23 14:12 Blood Culture - Preliminary Blood SPECIMEN COLLECTED A&P Assessment and plan (1) Coagulopathy: (2) Alcoholic hepatitis: Qualifiers: Ascites presence: unspecified Qualified Code(s): K70.10 - Alcoholic hepatitis without ascites (3) Cellulitis and abscess of left leg: (4) Sepsis: Qualifiers: Sepsis type: sepsis due to unspecified organism Sepsis acute organ dysfunction status: unspecified Qualified Code(s): A41.9 - Sepsis, unspecified organism (5) Wet gangrene: (6) Venous stasis ulcer: Qualifiers: Venous stasis ulcer site: calf Varicose vein presence: without varicose veins Laterality: left Non-pressure ulcer stage: limited to breakdown of skin Qualified Code(s): I87.2 - Venous insufficiency (chronic) (peripheral); L97.221 - Non-pressure chronic ulcer of left calf limited to breakdown of skin (7) Anasarca: Plan Sepsis related to wet gangrene No sign of osteomyelitis or necrotizing fasciitis CT scan reviewed No fever at this point Continue IV antibiotics Going for surgical debridement today He is n.p.o. High lactic acid likely secondary to decreased clearance because of liver injury Alcohol hepatitis Coagulopathy Will give another dose of vitamin K I would not add steroids because of underlying leg infection Continue Protonix Opioids along bowel regimen Will wait for culture report Hopefully patient will be able to use oral antibiotics after debridement DVT prophylaxis contraindicated with anticoagulating agent Use SCDs for now Attestations 2 Medical Necessity Statement*: Continue medical management Diagnoses Coagulopathy D68.9 Alcoholic hepatitis, unspecified whether ascites present K70.10 Ascites presence: unspecified Cellulitis and abscess of left leg L03.116; L02.416 Sepsis, due to unspecified organism, unspecified whether acute organ dysfunction present A41.9 Sepsis type: sepsis due to unspecified organism Sepsis acute organ dysfunction status: unspecified Wet gangrene I96 Venous stasis ulcer of left calf limited to breakdown of skin without varicose veins I87.2; L97.221 Venous stasis ulcer site: calf Varicose vein presence: without varicose veins Laterality: left Non-pressure ulcer stage: limited to breakdown of skin Anasarca R60.1
[2023-11-19] MEDS: phytonadione (ADULT) 10 MG in sodium chloride 0.9% 50 ML 153 MG IV (11:43)
--- NOTE | 2023-11-19 13:20 | PC.NURSE ---
Pt to the OR at this time
[2023-11-19] MEDS: sodium chloride 0.9% 1,000 ML 30 ML IV (13:35)
--- NOTE | 2023-11-19 13:54 | P.ANESASSM_ITS ---
Pre-Anesthetic Assessment Height/Weight: Height 1.85 m Weight 157.896 kg Temp Pulse Resp BP Pulse Ox O2 Del Method 99.0 F 91 16 134/82 97 Room Air 11/19/23 11:20 11/19/23 11:20 11/19/23 11:20 11/19/23 11:20 11/19/23 11:20 11/19/23 11:20 Operation Date: 11/19/23 13:55 Proposed Procedures p Incision and debridement left leg(Left) - Saul Mcbride DPM Familial anesthetic complications: none Was Beta Luis Miguel taken within 24 hours: N/A Was Clonidine taken within 24 hours: N/A Last intake: Intake Last Liquid Date 11/18/23 Last Liquid Time 23:00 Last Solid Date 11/18/23 Last Solid Time 17:00 Social No alcohol and No tobacco Exam alert, oriented x 3, clear to auscultation bilaterally and regular rate & rhythm Airway Mallampati: Class IV Dentition: other (1 missing) Comments: Comments: large lizarraga and neck CV/HEM Hypertension Hepatic Hepatitis Anesthetic Plan ASA status: 4 Anesthesia: MAC Risk of > 500 ml blood loss (7ml/kg in children): No Medications/Allergies Home Medications Medication Instructions Recorded Confirmed Last Taken Type Unable to Assess 11/19/23 11/19/23 Unknown History Allergies Allergy/AdvReac Type Severity Reaction Status Date / Time No Known Allergies Allergy Verified 11/18/23 13:26 Current Medications Generic Name Dose Route Start Last Admin Trade Name Freq PRN Reason Stop Dose Admin Piperacillin Sod/Tazobactam 50 mls @ 12.5 mls/hr 11/18/23 22:00 11/19/23 10:33 Sod 3.375 gm/ Sodium Chloride IV Infused Q8H SERA Infusion Protocol Vancomycin HCl 1,500 mg in 300 mls @ 200 mls/hr 11/19/23 04:00 11/19/23 12:32 Vancocin IV Infused Q8H SERA Infusion Sodium Chloride 1,000 mls @ 30 mls/hr 11/19/23 13:30 11/19/23 13:35 Sodium Chloride 0.9% IV 11/20/23 13:29 30 mls/hr .Q24H SERA Administration Morphine Sulfate 15 mg 11/18/23 17:09 11/19/23 08:14 Morphine Ir 15 Mg Tablet PO 15 mg Q6H PRN Administration MODERATE PAIN Pantoprazole Sodium 40 mg 11/18/23 18:00 11/19/23 08:08 Pantoprazole 40 Mg Sdv IVP 40 mg BID SERA Administration Senna/Docusate Sodium 1 tab 11/19/23 09:00 11/19/23 08:08 Sennosides-Docusate Tablet PO 1 tab DAILY SERA Administration PFSH Anesthesia Medical History Hyperbilirubinemia Generalized weakness Hypercoagulable state Alcoholic cirrhosis Wound infection Data Anesthesia 11/19/23 04:35 11/19/23 04:35 Short CBC 11/18/23 11/19/23 Range/Units 14:12 04:35 WBC 21.40 H 13.58 H (3.29-11.43) 10^3/uL Hgb 12.40 10.10 L (11.27-16.99) g/dL Hct 36.6 L 31.1 L (37-53) % MCV 105.8 H 110.7 H (82-101) fl Plt Count 46 L 35 L (157-399) 10^3/cmm Neut % (Auto) 77.6 71.5 % Neut # (Auto) 16.59 H 9.71 H (1.8-7.7) 10^3/uL BMP 11/18/23 11/19/23 14:12 04:35 Sodium 125 L 129 L Potassium 3.6 3.6 Chloride 96 L 100 Carbon Dioxide 24 23 BUN 8 5 L Creatinine 0.4 L 0.3 L Glucose 102 98 Calcium 7.0 L 6.5 L Liver Function 11/18/23 11/19/23 Range/Units 14:12 04:35 Total Bilirubin 8.1 H* 7.8 H* (0.15-1.2) mg/dL AST 80 H 67 H (0-40) U/L ALT 26 20 (0-41) U/L Alkaline Phosphatase 147 H 123 (40-130) U/L Albumin 1.9 L 1.8 L (3.5-5.2) g/dL Blood Bank 11/18/23 16:25 Blood Type O Positive Rho(D) Type Rh positive Antibody Screen Negative Coags 11/18/23 11/18/23 11/19/23 14:12 14:15 04:35 ESR 37 H PT 26.60 H 25.50 H INR 2.35 H 2.23 H APTT 48.1 H C-Reactive Protein 53.2 H Microbiology 11/18/23 16:47 Wound Culture - Preliminary Leg - Left Gram Negative Rods 11/18/23 14:15 Blood Culture - Preliminary Blood SPECIMEN COLLECTED 11/18/23 14:12 Blood Culture - Preliminary Blood SPECIMEN COLLECTED Cardiac Studies: 2 Echocardiogram 11/19/23
--- NOTE | 2023-11-19 14:00 | P.HPUD_ITS ---
Surgery/Procedure H&P Update DATE OF PROCEDURE: November 19, 2023 DATE H&P PERFORMED: 11/18/23 H&P UPDATE INFORMATION: I have reviewed H&P completed within last 30 days, I have examined patient prior to procedure, No changes to prior documentation and H&P is in [facility] [place] EMR on date indicated PLANNED PROCEDURE: Operation Date: 11/19/23 13:55 Proposed Procedures p Incision and debridement left leg(Left) - Saul Mcbride DPM
--- NOTE | 2023-11-19 14:35 | P.BOP_ITS ---
Date of Procedure: 04/26/23 Surgeon: Saul Mcbride DPM Business Control Specialist(s): Malachi Procedure(s) performed: Incision and debridement left leg Findings of the procedure(s): Devitalized soft tissue down to subcutaneous level left leg Estimated blood loss: 2 mL Specimen(s) removed: No specimens Post-operative diagnosis: Cellulitis left leg with left leg wound.
--- NOTE | 2023-11-19 14:35 | PM.OP ---
Operative Report Date of procedure: November 19, 2023 Pre-op diagnosis: Cellulitis with wound exposed to subcutaneous/fat layer left leg Post-op diagnosis: Same Post-op findings: Improved soft tissue Procedure done: Incision and debridement left leg. CPT code 90620 Additional soft tissue debrided 28417 Implants: None Specimens removed/disposition: None Pathology: None Surgeon: Saul Mcbride DPM Grizzly Worker: Malachi Estimated blood loss: 2 No tourniquet IV fluids: See intraoperative documentation Urine output: None Complications: none Brief History: Eduardo Leon is a 48 year old male presents to emergency department with complaints of a wound to the left leg with redness, drainage and swelling. Patient is nondiabetic, past medical history includes alcohol induced hepatitis, was recently worked up at [facility] in [place] for transaminitis. At discharge she was placed on spironolactone, Lasix, Keflex and pain medication. He reports being on fluid restriction at 1800 mL/day, he last ate this morning, eggs, sausage, toast, has been drinking water throughout the day, approximately 1 L since noon. Patient denies any subjective nausea, vomiting, fever, chills, shortness of breath or chest pain. Patient is afebrile, denies nausea, fevers or chills WBC 21.4 ESR 37 CRP 53.2 mg/L PT 26.6 INR 2.35 APTT 48.1 Leg x-ray and leg CT scan NEGATIVE for soft tissue emphysema, foreign body, abscess or acute osseous abnormality. Recommended surgical debridement of infected soft tissue patient is agreeable wishes to proceed. I reviewed at length with the patient, the risks, potential complications, benefits, alternatives, expectations, and typical outcomes associated with the surgery. The risks and potential complications were explained in detail, including but not limited to infection, wound dehiscence or soft tissue complications, bleeding and hematoma, chronic edema, neuritis or nerve damage producing numbness or chronic pain, CRPS, failure to relieve pain or worsening pain, thick / painful / unsightly scar, limited motion / stiffness, malposition, delayed union, malunion, or nonunion, fracture, reaction to implants, anesthetic complications, venous thromboembolism, and deformity recurrence. I discussed the notion of no regrets with the patient as it pertains to complications and outcomes. The patient seemed to understand the nature of the proposed care and required convalescence. They asked appropriate questions, answered to their satisfaction. They are aware no guarantees can be made as to a satisfactory outcome and they understand there may be other possible unforeseen complications or outcomes not listed here that will be treated accordingly if they arise. There were no written or implied guarantees given to the patient. They gave informed consent to proceed. Procedure: Under mild sedation patient was brought to the operating room and remained on the hospital bed in supine position. A timeout was performed. Anesthesia was then administered by the anesthesia service. Left lower extremity was scrubbed, prepped and draped utilizing normal aseptic technique. No tourniquet utilized. Attention was directed to the left anterior leg wound which demonstrated devitalized tissue down to subcutaneous tissue level this was sharply and excisionally debrided of all devitalized tissue with a #10 blade, postdebridement anterior left leg wound measurements 14 cm x 7.4 cm x 0.2 cm Attention was then directed to the left posterior leg where devitalized tissue was debrided down to and including subcutaneous tissue sharply with a #10 blade with hemostasis via manual pressure, postdebridement wound measurement of the left posterior leg 14 cm x 10 cm x 0.2 cm Attention was then directed to the dorsal aspect of the left foot where debridement was performed of devitalized soft tissue down to and including subcutaneous tissue sharply with a #10 blade with hemostasis via manual pressure. Postdebridement wound measurement of the dorsal lateral aspect of the left foot 6 cm x 2 cm x 0.2 cm All wounds were dressed with Dakin's wet to dry, ABD pad, sterile 4 x 4 gauze and Kerlix followed by Cobfatmata. Patient tolerated procedure and anesthesia well and was transferred to the PACU with vital signs stable and vascular status intact. Following a period of postoperative monitoring he will transferred back to the floor to continue empiric IV antibiotics, will monitor his clinical improvement, may require further surgical debridement pending his response.
--- NOTE | 2023-11-19 14:50 | ANE.PACU2 ---
Inpatient post-anesthesia follow up: Airway intact: Yes Vital signs: Temperature 98.5 F Pulse Rate 97 Respiratory Rate 18 Blood Pressure 128/72 Pulse Oximetry 94 Oxygen Delivery Me thod Room Air Oxygen Flow Rate Fraction of Inspir ed Oxygen Hydration adequate: Yes Nausea and vomiting: No Pain level: 1 Mental status: Baseline
--- NOTE | 2023-11-19 17:09 | USCV_ITS ---
Eduardo Leon Age: 48 Gender: M : 1975 Exam Date: 11/19/2023 06:56 Ordering Phys: Carmen Spears MD Technologist: Exam Location: [facility] [place] Indication: chf BP: 154 / 75 HR: 79 Rhythm: Sinus Technical Quality: Adequate MEASUREMENTS (Male / Female) Normal Values 2D ECHO LV Diastolic Diameter PLAX 6.0 cm 4.2 - 5.9 / 3.9 - 5.3 cm IVS Diastolic Thickness 1.3 cm 0.6 - 1.0 / 0.6 - 0.9 cm IVS Systolic Thickness 1.6 cm LVPW Diastolic Thickness 1.4 cm 0.6 - 1.0 / 0.6 - 0.9 cm LVPW Systolic Thickness 1.7 cm LVOT Diameter 2.0 cm LV Ejection Fraction 2D Teich 71.0 % LV Ejection Fraction MOD 4C 67.9 % LV Ejection Fraction MOD 2C 52.6 % LV Ejection Fraction 2C AL 53.1 % LA Diameter 3.9 cm RA Systolic Volume 4C AL 48.4 ml RA Systolic Volume 4C MOD 46.5 ml Aorta at Sinotubular Diameter 3.7 cm M-MODE LA Ao Ratio MM 1.0 AV Cusp Separation MM 2.5 cm DOPPLER AV Peak Velocity 182.0 cm/s LVOT Peak Velocity 110.0 cm/s AV Area Cont Eq vti 2.0 cm squared AV Area Cont Eq pk 1.9 cm squared MV Area PHT 3.9 cm squared Mitral E to A Ratio 1.2 TV Peak Velocity 192.5 cm/s TR Peak Velocity 232.0 cm/s TR Peak Gradient 21.5 mmHg Right Atrial Pressure 3.0 mmHg Pulmonary Artery Systolic Pressu 24.5 mmHg PV Peak Velocity 156.0 cm/s FINDINGS Left Ventricle Normal left ventricular size, systolic function and wall thickness, with no regional wall motion abnormalities. Left ventricular ejection fraction is estimated at 60 %. Grade II/IV diastolic dysfunction, moderately elevated filling pressures. Right Ventricle The right ventricle is normal in size and function. Right Atrium The right atrium is normal in size. Left Atrium The left atrium is normal in size. Mitral Valve Thickened mitral valve. No mitral valve stenosis. Mild mitral valve regurgitation. Aortic Valve Moderate aortic valve calcification. No aortic valve stenosis. Trace aortic valve regurgitation. Tricuspid Valve [id number] tricuspid valve regurgitation. Pulmonic Valve Structurally normal pulmonic valve without significant stenosis. There is no pulmonic regurgitation. Pericardium Normal pericardium without effusion. Aorta Normal ascending aorta dimension. IVC The inferior vena cava appears normal. CONCLUSIONS Normal left ventricular size, systolic function and wall thickness, with no regional wall motion abnormalities. Left ventricular ejection fraction is estimated at 60 %. Grade II/IV diastolic dysfunction, moderately elevated filling pressures. Moderate aortic valve calcification. No aortic valve stenosis. Trace aortic valve regurgitation. Thickened mitral valve. No mitral valve stenosis. Mild mitral valve regurgitation. [id number] tricuspid valve regurgitation. There is no pericardial effusion. Right atrial pressure is around 5 mm of mercury. Carmen Mcdonald MD (Electronically Signed) Final Date: 19 November 2023 13:27 S
[2023-11-20] VITALS (10 sets, daily range): BP systolic 114–138; BP diastolic 68–82; PULSE 72–91; RESP 14–18; TEMP 36.5–37.1; O2SAT 94–99
[2023-11-20] MEDS: morphine IR 15 mg Tablet PO ×3 (05:18→22:00)
[2023-11-20 06:05] LABS: Basophils # 0.1 10^3/uL (0.0-0.1); Basophils % 0.4 %; Eosinophils # 0.2 10^3/uL (0.0-0.8); Eosinophils % 1.1 %; Hematocrit 32.8 % (37-53); Lymphocytes % 12.3 %; Mean Corpuscular HGB Conc 31.7 g/dL (30-55); Mean Corpuscular Hemoglobin 35.7 pg (27-33); Mean Corpuscular Volume 112.7 fl (82-101); Mean Platelet Volume 11.8 fL (7.4-10.4); Monocytes # 1.6 10^3/uL (0.2-0.9); Monocytes % 9.8 %; Neutrophils # 12.02 10^3/uL (1.8-7.7); Neutrophils % 74.2 %; Nucleated Red Blood Cells % 0 %; Platelet Count 36 10^3/cmm (157-399); Red Blood Count 2.91 10^6/uL (3.85-5.65); Red Cell Distribution Width 14.7 % (12.1-15.1); White Blood Count 16.21 10^3/uL (3.29-11.43)
[2023-11-20] MEDS: piperacillin-tazobactam 3.375 GM in sodium chloride 0.9% (plus) 50 ML IV ×3 (06:19→22:00)
[2023-11-20 06:29] LABS: Vancomycin Trough 10.9 ug/mL (10-15)
[2023-11-20 06:40] LABS: Alanine Aminotransferase 21 U/L (0-41); Albumin Level 1.8 g/dL (3.5-5.2); Alkaline Phosphatase 115 U/L (40-130); Blood Urea Nitrogen 5 mg/dL (6-20); Calcium 6.5 mg/dL (8.5-10.5); Carbon Dioxide 21 mmol/L (22-29); Chloride 101 mmol/L (98-107); Creatinine Clr Calc Pharmacy 714.4592; Globulin 5.2 g/dL (1.3-4.6); Glomerular Filtration Rate 510.9 mL/min (90-130); Glucose 88 mg/dL (65-115); Osmolality Calculated 265 mOsm/kg (285-295); Sodium 129 mmol/L (136-145)
[2023-11-20] MEDS: vancomycin 1,500 MG/300 ML PIGGYBACK 200 MG IV (06:45)
[2023-11-20 06:54] LABS: Total Bilirubin 8.6 mg/dL (0.15-1.2)
[2023-11-20 06:55] LABS: Anion Gap 10.8 (5-19); Aspartate Amino Transferase 74 U/L (0-40); Potassium 3.8 mmol/L (3.5-5.1)
[2023-11-20] MEDS: sennosides-docusate Tablet 1 TAB PO (08:48)
[2023-11-20] MEDS: pantoprazole 40 mg SDV IVP ×2 (09:19→16:28)
--- NOTE | 2023-11-20 12:27 | P.PN_ITS ---
Subjective 2 Subjective: Patient seen bedside, status post incision and debridement left leg wound Vitals/I&O/Wt Last Vital Signs Temp 97.7 F 11/20/23 11:44 Pulse 72 11/20/23 11:49 Resp 16 11/20/23 11:49 BP 130/76 11/20/23 11:44 Pulse Ox 94 11/20/23 11:49 O2 Del Method Room Air 11/20/23 11:49 11/19/23 11/20/23 11/20/23 22:59 06:59 14:59 Intake Total 821.042 / 1472.042 48.958 / 1521.000 866 / 866 Output Total 425 / 427 250 / 677 200 / 200 Balance 396.042 / 1045.042 -201.042 / 844.000 666 / 666 Weight last 48 hrs Weight 352 lb 2 oz Weight 348 lb 1.6 oz Weight 344 lb 4.8 oz Weight 350 lb Physical Exam 2 Narrative: GENERAL: Patient is alert and oriented ?3 and in no acute distress. The following is a focused bilateral lower extremity exam. VASCULAR: Dorsalis pedis palpable +2 bilaterally. Posterior tibial arteries palpable bilaterally. Capillary refill time less than 3 seconds to the distal hallux bilaterally. Calf is supple and nontender proximally and distally. +2 edema to the left lower extremity. NEUROLOGICAL: Protective sensation intact 8/10 sites, tested with [place] monofilament to bilateral feet. DERMATOLOGICAL: Wound at the left lower one third anterior leg and left posterior leg not exposed to fat layer there is periwound erythema and cellulitis of the left leg streaking to the proximal one third of the leg. MUSCULOSKELETAL: No crepitus with palpation of soft tissue of the left leg. Pain to palpation left leg wounds. Muscle strength +5 in all 3 planes bilateral foot and ankle. Data 11/21/23 05:04 11/21/23 05:04 Micro: Microbiology 11/18/23 14:15 Blood Culture - Preliminary Blood NEGATIVE TO DATE 11/18/23 14:12 Blood Culture - Preliminary Blood NEGATIVE TO DATE 11/18/23 16:47 Wound Culture - Preliminary Leg - Left Gram Negative Rods A&P Assessment and plan (1) Alcoholic hepatitis: Qualifiers: Ascites presence: unspecified Qualified Code(s): K70.10 - Alcoholic hepatitis without ascites (2) Cellulitis and abscess of left leg: (3) Venous stasis ulcer: Qualifiers: Venous stasis ulcer site: calf Varicose vein presence: without varicose veins Laterality: left Non-pressure ulcer stage: limited to breakdown of skin Qualified Code(s): I87.2 - Venous insufficiency (chronic) (peripheral); L97.221 - Non-pressure chronic ulcer of left calf limited to breakdown of skin Plan 48-year-old male with cellulitis left leg and venous stasis ulceration left anterior and posterior leg Status post incision and debridement left leg performed 11/19/2023 White blood cell count trending downward Continuing once daily Dakin's wet to dry dressing Elevate left leg Slow response to debridement and IV antibiotics Culture pending Requires continued IV antibiotics, podiatry will round daily and perform daily dressing change and monitor clinical improvement of left leg cellulitis Attestations 2 Medical Necessity Statement*: Requires continued IV antibiotics due to cellulitis Coding Level of Care Code Acute Code for Chg Fwd Diagnoses Alcoholic hepatitis, unspecified whether ascites present K70.10 Ascites presence: unspecified Cellulitis and abscess of left leg L03.116; L02.416 Venous stasis ulcer of left calf limited to breakdown of skin without varicose veins I87.2; L97.221 Venous stasis ulcer site: calf Varicose vein presence: without varicose veins Laterality: left Non-pressure ulcer stage: limited to breakdown of skin
--- NOTE | 2023-11-20 13:09 | P.PN_ITS ---
Subjective 2 Subjective: No fever, white count improving, will need to monitor his healing response till Saturday, for now our plan is to discharge him on oral antibiotics Patient is agreeable with the plan Appreciate podiatry recommendations, dressing has been changed today White count of 16,000 Gram-negative alina noted on the culture from the leg Vitals/I&O/Wt Last Vital Signs Temp 97.7 F 11/20/23 11:44 Pulse 72 11/20/23 11:49 Resp 16 11/20/23 11:49 BP 130/76 11/20/23 11:44 Pulse Ox 94 11/20/23 11:49 O2 Del Method Room Air 11/20/23 11:49 11/19/23 11/20/23 11/20/23 22:59 06:59 14:59 Intake Total 821.042 / 1472.042 48.958 / 1521.000 866 / 866 Output Total 425 / 427 250 / 677 200 / 200 Balance 396.042 / 1045.042 -201.042 / 844.000 666 / 666 Weight last 48 hrs Weight 159.721 kg Weight 157.896 kg Weight 156.172 kg Weight 158.757 kg Physical Exam 2 Narrative: Pleasant cooperative Anasarca present Scleral icterus Left foot covered in dressing Pleasant and cooperative Hemodynamic stable Currently on room air Abdomen nontender Distended S1, S2 Data 11/20/23 05:15 11/20/23 05:15 Micro: Microbiology 11/18/23 14:15 Blood Culture - Preliminary Blood NEGATIVE TO DATE 11/18/23 14:12 Blood Culture - Preliminary Blood NEGATIVE TO DATE 11/18/23 16:47 Wound Culture - Preliminary Leg - Left Gram Negative Rods A&P Assessment and plan (1) Coagulopathy: (2) Alcoholic hepatitis: Qualifiers: Ascites presence: unspecified Qualified Code(s): K70.10 - Alcoholic hepatitis without ascites (3) Cellulitis and abscess of left leg: (4) Sepsis: Qualifiers: Sepsis type: sepsis due to unspecified organism Sepsis acute organ dysfunction status: unspecified Qualified Code(s): A41.9 - Sepsis, unspecified organism (5) Wet gangrene: (6) Venous stasis ulcer: Qualifiers: Venous stasis ulcer site: calf Varicose vein presence: without varicose veins Laterality: left Non-pressure ulcer stage: limited to breakdown of skin Qualified Code(s): I87.2 - Venous insufficiency (chronic) (peripheral); L97.221 - Non-pressure chronic ulcer of left calf limited to breakdown of skin (7) Anasarca: Plan Sepsis related to wet gangrene Continue IV antibiotics till Saturday then switch to p.o. regimen Cultures showing gram-negative alina, blood cultures negative, , High lactic acid likely secondary to decreased clearance because of liver injury Alcohol hepatitis Coagulopathy No active bleeding Thrombocytopenia related to portal hypertension No active bleed Hypervolemic hyponatremia: Start gentle diuresis Opioids along bowel regimen For now our plan is to discharge him on oral antibiotics DVT prophylaxis contraindicated with anticoagulating agent Use SCDs for now Full code Attestations 2 Medical Necessity Statement*: Wait till Saturday Diagnoses Coagulopathy D68.9 Alcoholic hepatitis, unspecified whether ascites present K70.10 Ascites presence: unspecified Cellulitis and abscess of left leg L03.116; L02.416 Sepsis, due to unspecified organism, unspecified whether acute organ dysfunction present A41.9 Sepsis type: sepsis due to unspecified organism Sepsis acute organ dysfunction status: unspecified Wet gangrene I96 Venous stasis ulcer of left calf limited to breakdown of skin without varicose veins I87.2; L97.221 Venous stasis ulcer site: calf Varicose vein presence: without varicose veins Laterality: left Non-pressure ulcer stage: limited to breakdown of skin Anasarca R60.1
[2023-11-20] MEDS: lactulose oral liq 20 gm/30 mL UDC 10 GM PO (13:29)
[2023-11-20] MEDS: vancomycin 1,750 MG/350 ML PIGGYBACK 200 MG IV ×2 (13:29→23:18)
[2023-11-20] MEDS: sodium hypochlorite 0.125% Btl 473 mL 1 APPLIC TOPICAL (13:33)
[2023-11-21] VITALS (10 sets, daily range): BP systolic 124–154; BP diastolic 70–83; PULSE 81–90; RESP 16–19; TEMP 36.5–37; O2SAT 96–100
[2023-11-21 05:26] LABS: Basophils % 0.3 %; Eosinophils # 0.2 10^3/uL (0.0-0.8); Eosinophils % 1.2 %; Lymphocytes # 1.9 10^3/uL (0.8-4.8); Lymphocytes % 12.7 %; Mean Corpuscular HGB Conc 32.8 g/dL (30-55); Mean Corpuscular Hemoglobin 35.7 pg (27-33); Mean Corpuscular Volume 108.8 fl (82-101); Mean Platelet Volume 10.8 fL (7.4-10.4); Monocytes # 1.2 10^3/uL (0.2-0.9); Neutrophils # 11.07 10^3/uL (1.8-7.7); Neutrophils % 75.9 %; Nucleated Red Blood Cells % 0.1 %; Platelet Count 36 10^3/cmm (157-399); Red Blood Count 2.94 10^6/uL (3.85-5.65); Red Cell Distribution Width 14.5 % (12.1-15.1); White Blood Count 14.58 10^3/uL (3.29-11.43)
[2023-11-21 05:46] LABS: Alanine Aminotransferase 22 U/L (0-41); Albumin Level 1.7 g/dL (3.5-5.2); Alkaline Phosphatase 144 U/L (40-130); Anion Gap 7.6 (5-19); Aspartate Amino Transferase 67 U/L (0-40); Blood Urea Nitrogen 5 mg/dL (6-20); Calcium 6.7 mg/dL (8.5-10.5); Carbon Dioxide 24 mmol/L (22-29); Chloride 99 mmol/L (98-107); Creatinine Clr Calc Pharmacy 479.3013; Globulin 5.5 g/dL (1.3-4.6); Glucose 86 mg/dL (65-115); Osmolality Calculated 261 mOsm/kg (285-295); Potassium 3.6 mmol/L (3.5-5.1); Sodium 127 mmol/L (136-145); Total Protein 7.2 g/dL (6.6-8.7)
[2023-11-21 05:57] LABS: Total Bilirubin 7.8 mg/dL (0.15-1.2)
[2023-11-21] MEDS: piperacillin-tazobactam 3.375 GM in sodium chloride 0.9% (plus) 50 ML IV ×3 (06:06→21:08)
[2023-11-21] MEDS: vancomycin 1,750 MG/350 ML PIGGYBACK 200 MG IV ×2 (06:25→15:31)
[2023-11-21] MEDS: morphine IR 15 mg Tablet PO ×3 (06:26→23:55)
[2023-11-21] MEDS: spironolactone 25 mg Tablet PO (08:11)
[2023-11-21] MEDS: pantoprazole 40 mg SDV IVP ×2 (08:11→17:16)
[2023-11-21] MEDS: FUROsemide 20 mg Tablet PO (08:11)
[2023-11-21] MEDS: sennosides-docusate Tablet 1 TAB PO (08:11)
[2023-11-21] MEDS: lactulose oral liq 20 gm/30 mL UDC 10 GM PO (08:12)
--- NOTE | 2023-11-21 11:53 | P.PN_ITS ---
Subjective 2 Subjective: White count improving Hemoglobin stable with thrombocytopenia Patient has been started on Lasix spironolactone He has been having regular bowel movement No signs of confusion Patient is waiting to be discharged on Saturday if cleared by Dr. Mcbride Vitals/I&O/Wt Last Vital Signs Temp 98.0 F 11/21/23 11:52 Pulse 87 11/21/23 11:52 Resp 18 11/21/23 11:52 BP 154/73 11/21/23 11:52 Pulse Ox 100 11/21/23 11:52 O2 Del Method Room Air 11/21/23 09:15 11/20/23 11/21/23 11/21/23 22:59 06:59 14:59 Intake Total 400 / 1386 400 / 1786 400 / 400 Output Total 450 / 650 350 / 1000 Balance -50 / 736 50 / 786 400 / 400 Weight last 48 hrs Weight 161.479 kg Weight 159.721 kg Physical Exam 2 Narrative: Laying supine Anasarca Distended nontender abdomen pleasant cooperative GCS 15 S1, S2 currently on room air Hypertensive Mother at the bedside Left foot covered with dressing No signs of neurovascular compromise of left foot Data 11/21/23 05:04 11/21/23 05:04 Micro: Microbiology 11/18/23 16:47 Wound Culture - Preliminary Leg - Left Gram Negative Rods A&P Assessment and plan (1) Coagulopathy: (2) Alcoholic hepatitis: Qualifiers: Ascites presence: unspecified Qualified Code(s): K70.10 - Alcoholic hepatitis without ascites (3) Cellulitis and abscess of left leg: (4) Sepsis: Qualifiers: Sepsis type: sepsis due to unspecified organism Sepsis acute organ dysfunction status: unspecified Qualified Code(s): A41.9 - Sepsis, unspecified organism (5) Wet gangrene: (6) Venous stasis ulcer: Qualifiers: Venous stasis ulcer site: calf Varicose vein presence: without varicose veins Laterality: left Non-pressure ulcer stage: limited to breakdown of skin Qualified Code(s): I87.2 - Venous insufficiency (chronic) (peripheral); L97.221 - Non-pressure chronic ulcer of left calf limited to breakdown of skin (7) Anasarca: (8) Thrombocytopenia: Plan Status post I&D surgical debridement of devitalized tissue of left leg No fever Leukocytosis improving Plan is to discharge him on oral antibiotics for 10 days on Saturday Leukocytosis improving Wound culture showing gram-negative alina which was taken in the ER Alcohol use hepatitis not a candidate to be on steroids at this point Echo showed preserved action fraction Hypervolemic hyponatremia Continue Lasix and spironolactone Full code Cardiac diet His IV antibiotics will be discontinued by Saturday Close follow-up with Dr. Mcbride after discharge All questions were answered to satisfaction, mother was present at the bedside I have told patient that his dressing change will be done by the nursing staff or Dr. Mcbride and we will take pictures of the wound Attestations 2 Medical Necessity Statement*: Continue medical management Diagnoses Coagulopathy D68.9 Alcoholic hepatitis, unspecified whether ascites present K70.10 Ascites presence: unspecified Cellulitis and abscess of left leg L03.116; L02.416 Sepsis, due to unspecified organism, unspecified whether acute organ dysfunction present A41.9 Sepsis type: sepsis due to unspecified organism Sepsis acute organ dysfunction status: unspecified Wet gangrene I96 Venous stasis ulcer of left calf limited to breakdown of skin without varicose veins I87.2; L97.221 Venous stasis ulcer site: calf Varicose vein presence: without varicose veins Laterality: left Non-pressure ulcer stage: limited to breakdown of skin Anasarca R60.1 Thrombocytopenia D69.6
--- NOTE | 2023-11-21 12:38 | PM.PN ---
Subjective Subjective: Patient seen bedside, status post incision and debridement left leg wound, his mother is bedside. Still having pain at the left leg. So having swelling and drainage of the left leg. Vitals/I&O/Wt Last Vital Signs Temp 98.0 F 11/21/23 11:52 Pulse 87 11/21/23 11:52 Resp 18 11/21/23 11:52 BP 154/73 11/21/23 11:52 Pulse Ox 100 11/21/23 11:52 O2 Del Method Room Air 11/21/23 09:15 11/20/23 11/21/23 11/21/23 22:59 06:59 14:59 Intake Total 400 / 1386 400 / 1786 400 / 400 Output Total 450 / 650 350 / 1000 Balance -50 / 736 50 / 786 400 / 400 Weight last 48 hrs Weight 356 lb Weight 352 lb 2 oz Physical Exam Narrative: GENERAL: Patient is alert and oriented ?3 and in no acute distress. The following is a focused bilateral lower extremity exam. VASCULAR: Dorsalis pedis palpable +2 bilaterally. Posterior tibial arteries palpable bilaterally. Capillary refill time less than 3 seconds to the distal hallux bilaterally. Calf is supple and nontender proximally and distally. +2 edema to the left lower extremity. NEUROLOGICAL: Protective sensation intact 8/10 sites, tested with [place] monofilament to bilateral feet. DERMATOLOGICAL: Wound at the left lower one third anterior leg and left posterior leg not exposed to fat layer there is periwound erythema and cellulitis of the left leg streaking to the proximal one third of the leg. MUSCULOSKELETAL: No crepitus with palpation of soft tissue of the left leg. Pain to palpation left leg wounds. Muscle strength +5 in all 3 planes bilateral foot and ankle. Data 11/21/23 05:04 11/21/23 05:04 Micro: Microbiology 11/18/23 16:47 Wound Culture - Preliminary Leg - Left Gram Negative Rods A&P Assessment and plan (1) Alcoholic hepatitis: Qualifiers: Ascites presence: unspecified Qualified Code(s): K70.10 - Alcoholic hepatitis without ascites (2) Cellulitis and abscess of left leg: (3) Venous stasis ulcer: Qualifiers: Venous stasis ulcer site: calf Varicose vein presence: without varicose veins Laterality: left Non-pressure ulcer stage: limited to breakdown of skin Qualified Code(s): I87.2 - Venous insufficiency (chronic) (peripheral); L97.221 - Non-pressure chronic ulcer of left calf limited to breakdown of skin Plan 48-year-old male with cellulitis left leg and venous stasis ulceration left anterior and posterior leg Status post incision and debridement left leg performed 11/19/2023 White blood cell count trending downward Continuing once daily Dakin's wet to dry dressing Elevate left leg Slow response to debridement and IV antibiotics Requires continued IV antibiotics, podiatry will round daily and perform daily dressing change and monitor clinical improvement of left leg cellulitis Appreciating a very slow response to surgical debridement and IV antibiotics, trending towards improvement, recommended continuation of antibiotic therapy at this time, wound culture showing gram-negative rods from left leg wound. Attestations Medical Necessity Statement*: Requires continued IV antibiotics due to cellulitis Coding Level of Care Code Acute Code for [facility] Fwd Diagnoses Alcoholic hepatitis, unspecified whether ascites present K70.10 Ascites presence: unspecified Cellulitis and abscess of left leg L03.116; L02.416 Venous stasis ulcer of left calf limited to breakdown of skin without varicose veins I87.2; L97.221 Venous stasis ulcer site: calf Varicose vein presence: without varicose veins Laterality: left Non-pressure ulcer stage: limited to breakdown of skin
[2023-11-21] MEDS: sodium hypochlorite 0.125% Btl 473 mL 1 APPLIC TOPICAL (15:09)
[2023-11-21 15:27] LABS: Vancomycin Trough 12.3 ug/mL (10-15)
[2023-11-21] MEDS: vancomycin 2,000 MG/400 ML PIGGYBACK 200 MG IV (22:40)
[2023-11-22] VITALS (11 sets, daily range): BP systolic 114–139; BP diastolic 62–82; PULSE 80–93; RESP 16–20; TEMP 36.7–37.2; O2SAT 94–98
[2023-11-22] MEDS: piperacillin-tazobactam 3.375 GM in sodium chloride 0.9% (plus) 50 ML IV ×2 (05:39→15:35)
[2023-11-22] MEDS: vancomycin 2,000 MG/400 ML PIGGYBACK 200 MG IV ×3 (06:00→22:56)
[2023-11-22 06:03] LABS: Basophils # 0.1 10^3/uL (0.0-0.1); Basophils % 0.4 %; Eosinophils # 0.2 10^3/uL (0.0-0.8); Eosinophils % 1.1 %; Hematocrit 31.6 % (37-53); Lymphocytes # 1.6 10^3/uL (0.8-4.8); Lymphocytes % 11.6 %; Mean Corpuscular HGB Conc 32.6 g/dL (30-55); Mean Corpuscular Hemoglobin 36.3 pg (27-33); Mean Corpuscular Volume 111.3 fl (82-101); Mean Platelet Volume 11.2 fL (7.4-10.4); Monocytes # 1.2 10^3/uL (0.2-0.9); Monocytes % 8.5 %; Neutrophils # 10.66 10^3/uL (1.8-7.7); Nucleated Red Blood Cells % 0.1 %; Platelet Count 33 10^3/cmm (157-399); Red Blood Count 2.84 10^6/uL (3.85-5.65); Red Cell Distribution Width 14.5 % (12.1-15.1); White Blood Count 13.84 10^3/uL (3.29-11.43)
[2023-11-22 06:15] LABS: Alanine Aminotransferase 21 U/L (0-41); Albumin Level 1.6 g/dL (3.5-5.2); Alkaline Phosphatase 124 U/L (40-130); Aspartate Amino Transferase 63 U/L (0-40); Blood Urea Nitrogen 4 mg/dL (6-20); Calcium 6.6 mg/dL (8.5-10.5); Carbon Dioxide 22 mmol/L (22-29); Chloride 100 mmol/L (98-107); Globulin 5.4 g/dL (1.3-4.6); Glucose 67 mg/dL (65-115); Osmolality Calculated 261 mOsm/kg (285-295); Sodium 128 mmol/L (136-145); Total Bilirubin 6.7 mg/dL (0.15-1.2)
[2023-11-22 06:16] LABS: Creatinine Clr Calc Pharmacy 479.3013
[2023-11-22] MEDS: spironolactone 25 mg Tablet PO (08:41)
[2023-11-22] MEDS: pantoprazole 40 mg SDV IVP ×2 (08:41→17:42)
[2023-11-22] MEDS: lactulose oral liq 20 gm/30 mL UDC 10 GM PO (08:41)
[2023-11-22] MEDS: FUROsemide 20 mg Tablet PO (08:41)
[2023-11-22] MEDS: morphine IR 15 mg Tablet PO ×3 (08:41→21:39)
--- NOTE | 2023-11-22 11:20 | P.PN_ITS ---
Subjective 2 Subjective: Patient seen bedside this morning, mother and father present. Patient endorses pain associated with his wound and cellulitis of the left leg. No other complaints at this time. Vitals/I&O/Wt Last Vital Signs Temp 98.2 F 11/22/23 11:04 Pulse 91 11/22/23 11:04 Resp 20 H 11/22/23 09:30 BP 114/62 11/22/23 11:04 Pulse Ox 96 11/22/23 11:04 O2 Del Method Room Air 11/22/23 11:04 11/21/23 11/22/23 11/22/23 22:59 06:59 14:59 Intake Total 810 / 1570 450 / 2020 690 / 690 Output Total 550 / 550 200 / 200 Balance 810 / 1570 -100 / 1470 490 / 490 Weight last 48 hrs Weight 356 lb Weight 356 lb Physical Exam 2 Narrative: GENERAL: Patient is alert and oriented ?3 and in no acute distress. The following is a focused bilateral lower extremity exam. VASCULAR: Dorsalis pedis palpable +2 bilaterally. Posterior tibial arteries palpable bilaterally. Capillary refill time less than 3 seconds to the distal hallux bilaterally. Calf is supple and nontender proximally and distally. +2 edema to the left lower extremity. NEUROLOGICAL: Protective sensation intact 8/10 sites, tested with [place] monofilament to bilateral feet. DERMATOLOGICAL: Wound at the left lower one third anterior leg and left posterior leg not exposed to fat layer there is periwound erythema and cellulitis of the left leg streaking to the proximal one third of the leg. MUSCULOSKELETAL: No crepitus with palpation of soft tissue of the left leg. Pain to palpation left leg wounds. Muscle strength +5 in all 3 planes bilateral foot and ankle. Data 11/22/23 05:11 11/22/23 05:11 A&P Assessment and plan (1) Alcoholic hepatitis: Qualifiers: Ascites presence: unspecified Qualified Code(s): K70.10 - Alcoholic hepatitis without ascites (2) Cellulitis and abscess of left leg: (3) Venous stasis ulcer: Qualifiers: Venous stasis ulcer site: calf Varicose vein presence: without varicose veins Laterality: left Non-pressure ulcer stage: limited to breakdown of skin Qualified Code(s): I87.2 - Venous insufficiency (chronic) (peripheral); L97.221 - Non-pressure chronic ulcer of left calf limited to breakdown of skin Plan 48-year-old male with cellulitis left leg and venous stasis ulceration left anterior and posterior leg Status post incision and debridement left leg performed 11/19/2023 White blood cell count trending downward Elevate left leg Requires continued IV antibiotics, podiatry will round daily and perform daily dressing change and monitor clinical improvement of left leg cellulitis Apply Unna wrap, ABD, Kerlix, Coban Appreciating a slow response to surgical debridement and IV antibiotics requires continued IV antibiotics and wound care. Attestations 2 Medical Necessity Statement*: Continued IV antibiotics for cellulitis slow response to treatment thus far. Coding Level of Care Code Acute Code for [facility] Fwd Diagnoses Alcoholic hepatitis, unspecified whether ascites present K70.10 Ascites presence: unspecified Cellulitis and abscess of left leg L03.116; L02.416 Venous stasis ulcer of left calf limited to breakdown of skin without varicose veins I87.2; L97.221 Venous stasis ulcer site: calf Varicose vein presence: without varicose veins Laterality: left Non-pressure ulcer stage: limited to breakdown of skin
--- NOTE | 2023-11-22 12:14 | P.PN_ITS ---
Subjective 2 Subjective: As per : Pt may need 1 more day of IV antibiotic for the redness at the surg site No overnight events Vitals/I&O/Wt Last Vital Signs Temp 98.2 F 11/22/23 11:04 Pulse 91 11/22/23 11:04 Resp 20 H 11/22/23 09:30 BP 114/62 11/22/23 11:04 Pulse Ox 96 11/22/23 11:04 O2 Del Method Room Air 11/22/23 11:04 11/21/23 11/22/23 11/22/23 22:59 06:59 14:59 Intake Total 810 / 1570 450 / 2020 690 / 690 Output Total 550 / 550 200 / 200 Balance 810 / 1570 -100 / 1470 490 / 490 Weight last 48 hrs Weight 161.479 kg Weight 161.479 kg Physical Exam 2 Narrative: Patient laying supine Anasarca GCS 15 no scleral icterus improving Hemodynamic stable on currently room air Pleasant cooperative Family at the bedside Data 11/22/23 05:11 11/22/23 05:11 A&P Assessment and plan (1) Coagulopathy: (2) Thrombocytopenia: (3) Alcoholic hepatitis: Qualifiers: Ascites presence: unspecified Qualified Code(s): K70.10 - Alcoholic hepatitis without ascites (4) Cellulitis and abscess of left leg: (5) Sepsis: Qualifiers: Sepsis type: sepsis due to unspecified organism Sepsis acute organ dysfunction status: unspecified Qualified Code(s): A41.9 - Sepsis, unspecified organism (6) Wet gangrene: (7) Venous stasis ulcer: Qualifiers: Venous stasis ulcer site: calf Varicose vein presence: without varicose veins Laterality: left Non-pressure ulcer stage: limited to breakdown of skin Qualified Code(s): I87.2 - Venous insufficiency (chronic) (peripheral); L97.221 - Non-pressure chronic ulcer of left calf limited to breakdown of skin (8) Anasarca: Plan 1 additional day of IV antibiotics Plan to discharge on Saturday on oral antibiotics then outpatient follow-up with Dr. Mcbride Continue diuretics for now Blood pressure is stable Hemoglobin stable Alcohol-induced portal hypertension related thrombocytopenia stable Full code DVT prophylaxis contraindicated Attestations 2 Medical Necessity Statement*: Discharge likely tomorrow Coding Level of Care Code Acute Code for [facility] Fwd Diagnoses Coagulopathy D68.9 Thrombocytopenia D69.6 Alcoholic hepatitis, unspecified whether ascites present K70.10 Ascites presence: unspecified Cellulitis and abscess of left leg L03.116; L02.416 Sepsis, due to unspecified organism, unspecified whether acute organ dysfunction present A41.9 Sepsis type: sepsis due to unspecified organism Sepsis acute organ dysfunction status: unspecified Wet gangrene I96 Venous stasis ulcer of left calf limited to breakdown of skin without varicose veins I87.2; L97.221 Venous stasis ulcer site: calf Varicose vein presence: without varicose veins Laterality: left Non-pressure ulcer stage: limited to breakdown of skin Anasarca R60.1
[2023-11-22] MEDS: albumin 12.5 GM/250 ML VIAL IV (13:33)
[2023-11-22] MEDS: sodium hypochlorite 0.125% Btl 473 mL 1 APPLIC TOPICAL (15:35)
[2023-11-22 22:44] LABS: Vancomycin Trough 18.4 ug/mL (10-15)
[2023-11-23] VITALS (9 sets, daily range): BP systolic 120–155; BP diastolic 68–85; PULSE 90–97; RESP 16–19; TEMP 36.9–37.6; O2SAT 94–98
[2023-11-23] MEDS: piperacillin-tazobactam 3.375 GM in sodium chloride 0.9% (plus) 50 ML IV ×3 (00:59→17:42)
[2023-11-23] MEDS: morphine IR 15 mg Tablet PO ×3 (05:25→21:24)
[2023-11-23 05:46] LABS: Basophils # 0.1 10^3/uL (0.0-0.1); Basophils % 0.5 %; Eosinophils # 0.2 10^3/uL (0.0-0.8); Hematocrit 29.4 % (37-53); Lymphocytes # 1.8 10^3/uL (0.8-4.8); Lymphocytes % 12.6 %; Mean Corpuscular Hemoglobin 35.9 pg (27-33); Mean Corpuscular Volume 108.9 fl (82-101); Mean Platelet Volume 11.4 fL (7.4-10.4); Monocytes # 1.4 10^3/uL (0.2-0.9); Monocytes % 9.8 %; Neutrophils # 10.87 10^3/uL (1.8-7.7); Neutrophils % 74.8 %; Nucleated Red Blood Cells % 0 %; Platelet Count 40 10^3/cmm (157-399); Red Cell Distribution Width 14.6 % (12.1-15.1); White Blood Count 14.55 10^3/uL (3.29-11.43)
[2023-11-23] MEDS: vancomycin 2,000 MG/400 ML PIGGYBACK 200 MG IV ×3 (06:03→23:19)
--- NOTE | 2023-11-23 08:25 | P.PN_ITS ---
Subjective 2 Subjective: Patient seen bedside this morning, denies any acute events overnight, improving leg pain. Vitals/I&O/Wt Last Vital Signs Temp 98.6 F 11/23/23 07:18 Pulse 95 11/23/23 07:18 Resp 17 11/23/23 05:25 BP 149/76 11/23/23 07:18 Pulse Ox 94 11/23/23 07:18 O2 Del Method Room Air 11/23/23 07:18 11/22/23 11/23/23 11/23/23 22:59 06:59 14:59 Intake Total 700 / 1390 450 / 1840 400 / 400 Output Total 350 / 550 Balance 700 / 1190 100 / 1290 400 / 400 Weight last 48 hrs Weight 356 lb Weight 356 lb Physical Exam 2 Narrative: GENERAL: Patient is alert and oriented ?3 and in no acute distress. The following is a focused bilateral lower extremity exam. VASCULAR: Dorsalis pedis palpable +2 bilaterally. Posterior tibial arteries palpable bilaterally. Capillary refill time less than 3 seconds to the distal hallux bilaterally. Calf is supple and nontender proximally and distally. +2 edema to the left lower extremity. NEUROLOGICAL: Protective sensation intact 8/10 sites, tested with [place] monofilament to bilateral feet. DERMATOLOGICAL: Wound at the left lower one third anterior leg, left lateral foot and left posterior leg not exposed to fat layer, improving periwound erythema. MUSCULOSKELETAL: No crepitus with palpation of soft tissue of the left leg. Pain to palpation left leg wounds. Muscle strength +5 in all 3 planes bilateral foot and ankle. Data 11/23/23 04:24 11/22/23 05:11 A&P Assessment and plan (1) Alcoholic hepatitis: Qualifiers: Ascites presence: unspecified Qualified Code(s): K70.10 - Alcoholic hepatitis without ascites (2) Venous stasis ulcer: Qualifiers: Venous stasis ulcer site: calf Varicose vein presence: without varicose veins Laterality: left Non-pressure ulcer stage: limited to breakdown of skin Qualified Code(s): I87.2 - Venous insufficiency (chronic) (peripheral); L97.221 - Non-pressure chronic ulcer of left calf limited to breakdown of skin Plan 48-year-old male with cellulitis left leg and venous stasis ulceration left anterior and posterior leg Status post incision and debridement left leg performed 11/19/2023 White blood cell count trending downward Elevate left leg Apply Unna wrap, ABD, Kerlix, Coban Clinical improvement appreciated to left leg with subsiding cellulitis, reduced erythema and edema. Patient being discharged on oral antibiotics per hospitalist, recommend wound care clinic follow-up early next week Attestations 2 Medical Necessity Statement*: Responding to antibiotic therapy and local wound care Coding Level of Care Code Acute Code for [facility] Fwd Diagnoses Alcoholic hepatitis, unspecified whether ascites present K70.10 Ascites presence: unspecified Venous stasis ulcer of left calf limited to breakdown of skin without varicose veins I87.2; L97.221 Venous stasis ulcer site: calf Varicose vein presence: without varicose veins Laterality: left Non-pressure ulcer stage: limited to breakdown of skin
[2023-11-23] MEDS: FUROsemide 20 mg Tablet PO (08:26)
[2023-11-23] MEDS: pantoprazole 40 mg SDV IVP ×2 (08:26→17:42)
[2023-11-23] MEDS: spironolactone 25 mg Tablet PO (08:26)
--- NOTE | 2023-11-23 08:34 | PM.DCS ---
Discharge Providers Date of Admission: 11/18/23 15:29 Date of Discharge: November 23, 2023 Attending Provider at Admission: Carmen Spears MD Attending Provider at Discharge: Carmen Spears MD Diagnoses at Discharge Discharge Diagnosis (1) Alcoholic hepatitis: Status: Acute Qualifiers: Ascites presence: unspecified Qualified Code(s): K70.10 - Alcoholic hepatitis without ascites (2) Venous stasis ulcer: Status: Acute Qualifiers: Venous stasis ulcer site: calf Varicose vein presence: without varicose veins Laterality: left Non-pressure ulcer stage: limited to breakdown of skin Qualified Code(s): I87.2 - Venous insufficiency (chronic) (peripheral); L97.221 - Non-pressure chronic ulcer of left calf limited to breakdown of skin Reason for Visit Reason for Visit: LEFT LEG PAIN Hospital Course Hospital Course 48-year-old male with history of alcohol-related hepatitis, liver cirrhosis, presented with chief complaint of worsening of venous stasis ulcer with devitalization of skin tissue, there was concern for necrotizing fasciitis CT scan was done before admission it did not show such changes, Dr. Mcbride was consulted who took patient for surgical debridement, patient remained afebrile, his leukocytosis improved with use of broad-spectrum antibiotics, he was given additional days of antibiotics in the hospital for better recovery of his wound, Dr. Mcbride was changing dressing on daily basis and recommended outpatient wound care referral instead of podiatry. Patient will get Augmentin and doxycycline along oxycodone at the time of discharge pedal wound care referral. Patient has anasarca from liver cirrhosis, his echo showed preserved distal fraction with grade 2 diastolic function. He will receive lisinopril and spironolactone combination along lactulose. Physical Exam Narrative: Pleasant cooperative GCS 15 Morbidly obese Anasarca Left foot dressing with improvement of cellulitis around the surgical debridement site Discharge Data Studies Completed and Pending Completed Studies During Hospitalization Category Date Time Status CT lower leg LT wo con* [id number] Stat Cat Scan 11/18/23 15:06 Completed XR tibia fibula LT 2V [id number] Stat Exams 11/18/23 14:55 Completed CV. echo complete* [id number] Routine Ultrasound 11/19/23 17:09 Completed Pending at discharge Category Date Time Status Blood Culture Stat Lab 11/18/23 14:15 Results Vancomycin Trough Timed Lab 11/23/23 22:00 Ordered Wound Culture Stat Lab 11/18/23 16:47 Results Radiology Impressions Tibia/Fibula X-Ray 11/18/23 14:55 IMPRESSION: 1. Tibia and fibula are intact. 2. Diffuse soft tissue edema. Lower Extremity CT 11/18/23 15:06 IMPRESSION: 1. Diffuse soft tissue edema without discrete fluid collection or underlying acute osseous abnormality. Laboratory Results WBC 14.55 10^3/uL (3.29-11.43) H 11/23/23 04:24 RBC 2.70 10^6/uL (3.85-5.65) L 11/23/23 04:24 Hgb 9.70 g/dL (11.27-16.99) L 11/23/23 04:24 Hct 29.4 % (37-53) L 11/23/23 04:24 MCV 108.9 fl (82-101) H 11/23/23 04:24 MCH 35.9 pg (27-33) H 11/23/23 04:24 MCHC 33.0 g/dL (30-55) 11/23/23 04:24 RDW 14.6 % (12.1-15.1) 11/23/23 04:24 Plt Count 40 10^3/cmm (157-399) L 11/23/23 04:24 MPV 11.4 fL (7.4-10.4) H 11/23/23 04:24 Neut % (Auto) 74.8 % 11/23/23 04:24 Lymph % (Auto) 12.6 % 11/23/23 04:24 [place] % (Auto) 9.8 % 11/23/23 04:24 Eos % (Auto) 1.0 % 11/23/23 04:24 Baso % (Auto) 0.5 % 11/23/23 04:24 Neut # (Auto) 10.87 10^3/uL (1.8-7.7) H 11/23/23 04:24 Lymph # (Auto) 1.8 10^3/uL (0.8-4.8) 11/23/23 04:24 [place] # (Auto) 1.4 10^3/uL (0.2-0.9) H 11/23/23 04:24 Eos # (Auto) 0.2 10^3/uL (0.0-0.8) 11/23/23 04:24 Baso # (Auto) 0.1 10^3/uL (0.0-0.1) 11/23/23 04:24 Nucleated RBC % (auto) 0 % 11/23/23 04:24 Nucleated RBCs # 0.0 /100WBC 11/23/23 04:24 ESR 37 mm/hr (0-10) H 11/18/23 14:12 PT 25.50 SECONDS (12.1-14.9) H 11/19/23 04:35 INR 2.23 (0.8-1.2) H 11/19/23 04:35 APTT 48.1 SECONDS (23.9-36.7) H 11/18/23 14:15 Sodium 128 mmol/L (136-145) L 11/22/23 05:11 Potassium 4.0 mmol/L (3.5-5.1) 11/22/23 05:11 Chloride 100 mmol/L (98-107) 11/22/23 05:11 Carbon Dioxide 22 mmol/L (22-29) 11/22/23 05:11 Anion Gap 10.0 (5-19) 11/22/23 05:11 BUN 4 mg/dL (6-20) L 11/22/23 05:11 Creatinine 0.3 mg/dL (0.7-1.2) L 11/22/23 05:11 GFR Calculation 320.0 mL/min (90-130) H 11/22/23 05:11 Glucose 67 mg/dL (65-115) 11/22/23 05:11 Calculated Osmolality 261 mOsm/kg (285-295) L 11/22/23 05:11 Lactic Acid 3.8 mmol/L (0.5-2.2) H 11/18/23 14:12 Lactic Acid (Sepsis) 3.1 mmol/L (0.5-2.2) H 11/18/23 16:25 Calcium 6.6 mg/dL (8.5-10.5) L 11/22/23 05:11 Magnesium 1.7 mg/dL (1.7-2.3) 11/19/23 04:35 Total Bilirubin 6.7 mg/dL (0.15-1.2) H 11/22/23 05:11 AST 63 U/L (0-40) H 11/22/23 05:11 ALT 21 U/L (0-41) 11/22/23 05:11 Alkaline Phosphatase 124 U/L (40-130) 11/22/23 05:11 C-Reactive Protein 53.2 mg/L (0.0-4.9) H 11/18/23 14:12 Total Protein 7.0 g/dL (6.6-8.7) 11/22/23 05:11 Albumin 1.6 g/dL (3.5-5.2) L 11/22/23 05:11 Globulin 5.4 g/dL (1.3-4.6) H 11/22/23 05:11 Vancomycin Trough 18.4 ug/mL (10-15) H 11/22/23 22:08 Blood Type O Positive 11/18/23 16:25 Rho(D) Type Rh positive 11/18/23 16:25 Antibody Screen Negative 11/18/23 16:25 Vitals Last Vital Signs Temp 98.6 F 11/23/23 07:18 Pulse 95 11/23/23 07:18 Resp 17 11/23/23 05:25 BP 149/76 11/23/23 07:18 Pulse Ox 94 11/23/23 07:18 O2 Del Method Room Air 11/23/23 07:18 Discharge Plan Discharge Patient Disposition: Home Condition: Stable Prescriptions: New oxycodone 5 mg tablet 5 mg PO BID PRN (Reason: pain) Qty: 14 0RF furosemide 20 mg Tablet 40 mg PO DAILY@0800 Qty: 60 2RF amoxicillin-pot clavulanate 875-125 mg tablet 1 tab PO BID Qty: 14 0RF spironolactone 25 mg Tablet 25 mg PO DAILY Qty: 60 3RF doxycycline hyclate 100 mg tablet 100 mg PO BID 7 Days Qty: 14 0RF lactulose 10 gram packet 10 g PO DAILY PRN (Reason: constipation) Qty: 15 0RF No Action Unable to Assess Discharge Orders: Discharge Order (Routine); Ordered 11/23/23 Ordered By: Carmen Spears Referrals: WOUND CARE CLINIC, [Staff Physician] - 1-3 days Patient Instructions: Acute Wound Care (DC), Opioid Safety, Post Anesthesia Care Activity Restrictions/Additional Instructions: Instructions from Dr. Mcbride for left leg wound Keep current wrap clean, dry and intact Recommend wound care clinic follow-up early next week for continued care left leg wound. Discharge Attestations Time Spent in Discharge Care*: greater than 30 min Quality Metrics Clinical Quality Measures [ No reported AMI, CVA or VTE this stay] Coding Level of Care Code Acute Code for Chg Fwd Diagnoses Alcoholic hepatitis, unspecified whether ascites present K70.10 Ascites presence: unspecified Venous stasis ulcer of left calf limited to breakdown of skin without varicose veins I87.2; L97.221 Venous stasis ulcer site: calf Varicose vein presence: without varicose veins Laterality: left Non-pressure ulcer stage: limited to breakdown of skin
[2023-11-23] MEDS: sodium hypochlorite 0.125% Btl 473 mL 1 APPLIC TOPICAL (14:08)
[2023-11-23 23:10] LABS: Vancomycin Trough 19.4 ug/mL (10-15)
[2023-11-24] VITALS (10 sets, daily range): BP systolic 134–154; BP diastolic 74–86; PULSE 90–101; RESP 15–20; TEMP 36.6–37; O2SAT 94–99
[2023-11-24] MEDS: piperacillin-tazobactam 3.375 GM in sodium chloride 0.9% (plus) 50 ML IV ×3 (01:15→18:25)
[2023-11-24] MEDS: morphine IR 15 mg Tablet PO ×3 (05:51→23:27)
[2023-11-24] MEDS: vancomycin 2,000 MG/400 ML PIGGYBACK 200 MG IV ×3 (06:09→23:13)
[2023-11-24] MEDS: spironolactone 25 mg Tablet PO (08:11)
[2023-11-24] MEDS: lactulose oral liq 20 gm/30 mL UDC 10 GM PO (08:11)
[2023-11-24] MEDS: FUROsemide 20 mg Tablet PO (08:11)
[2023-11-24] MEDS: sennosides-docusate Tablet 1 TAB PO (08:11)
[2023-11-24] MEDS: pantoprazole 40 mg SDV IVP ×2 (08:11→18:25)
--- NOTE | 2023-11-24 13:01 | P.PN_ITS ---
Subjective 2 Subjective: Patient is wanting to work with PT, he is scared that he will not be able to enter home he has 9 steps, he is not sure if he is able to use crutches or a walker He is wanting to apply for Medicaid as well asking for case management help Vitals/I&O/Wt Last Vital Signs Temp 98.0 F 11/24/23 12:00 Pulse 101 H 11/24/23 12:00 Resp 20 H 11/24/23 12:00 BP 152/82 11/24/23 12:00 Pulse Ox 99 11/24/23 12:00 O2 Del Method Room Air 11/24/23 12:00 11/23/23 11/24/23 11/24/23 22:59 06:59 14:59 Intake Total 450 / 1380 450 / 1830 930 / 930 Output Total 200 / 700 300 / 1000 600 / 600 Balance 250 / 680 150 / 830 330 / 330 Weight last 48 hrs Weight 161.479 kg Weight 161.479 kg Physical Exam 2 Narrative: Patient is laying supine Hemodynamically stable Hypertensive Tachycardic Afebrile Left foot covered with dressing Left foot swollen more than right Data 11/23/23 04:24 11/22/23 05:11 Micro: Microbiology 11/18/23 16:47 Wound Culture - Final Leg - Left Pantoea agglomerans 11/18/23 14:15 Blood Culture - Final Blood NO GROWTH AFTER 5 DAYS 11/18/23 14:12 Blood Culture - Final Blood NO GROWTH AFTER 5 DAYS A&P Assessment and plan (1) Anasarca: (2) Venous stasis ulcer: Qualifiers: Venous stasis ulcer site: calf Varicose vein presence: without varicose veins Laterality: left Non-pressure ulcer stage: limited to breakdown of skin Qualified Code(s): I87.2 - Venous insufficiency (chronic) (peripheral); L97.221 - Non-pressure chronic ulcer of left calf limited to breakdown of skin (3) Wet gangrene: (4) Sepsis: Qualifiers: Sepsis type: sepsis due to unspecified organism Sepsis acute organ dysfunction status: unspecified Qualified Code(s): A41.9 - Sepsis, unspecified organism (5) Alcoholic hepatitis: Qualifiers: Ascites presence: unspecified Qualified Code(s): K70.10 - Alcoholic hepatitis without ascites (6) Cellulitis and abscess of left leg: (7) Coagulopathy: (8) Thrombocytopenia: Plan Patient to work with PT Will request venous Doppler left leg I will give him IV Lasix Anasarca, bilirubin trending down Patient is needing help with Medicaid application submission Patient is requesting short-term rehab Full code Attestations 2 Medical Necessity Statement*: Continue medical management Diagnoses Anasarca R60.1 Venous stasis ulcer of left calf limited to breakdown of skin without varicose veins I87.2; L97.221 Venous stasis ulcer site: calf Varicose vein presence: without varicose veins Laterality: left Non-pressure ulcer stage: limited to breakdown of skin Wet gangrene I96 Sepsis, due to unspecified organism, unspecified whether acute organ dysfunction present A41.9 Sepsis type: sepsis due to unspecified organism Sepsis acute organ dysfunction status: unspecified Alcoholic hepatitis, unspecified whether ascites present K70.10 Ascites presence: unspecified Cellulitis and abscess of left leg L03.116; L02.416 Coagulopathy D68.9 Thrombocytopenia D69.6
--- NOTE | 2023-11-24 13:06 | USR_ITS ---
PROCEDURE INFORMATION: Exam: US Duplex Left Lower Extremity Veins, Limited Exam date and time: 11/24/2023 3:29 PM Age: 48 years old Clinical indication: Edema, localized; Lower extremity, left; Prior surgery; Surgery date: 3-7 days post-operative; Surgery type: Patient had surgery on 11/17; Additional info: Left leg swelling TECHNIQUE: Imaging protocol: Real-time duplex ultrasound of the left extremity with 2-D fuentes scale, color Doppler flow and spectral waveform analysis including responses to compression and other maneuvers (when performed) with image documentation. Limited exam focused on the left lower extremity veins. COMPARISON: CT lower leg LT wo con* [id number] 11/18/2023 3:38 PM FINDINGS: Left deep veins: Unremarkable. The common femoral, proximal profunda femoral, femoral, popliteal and peroneal veins are patent without thrombus. Normal compressibility, augmentation response and Doppler waveforms. Superficial veins: Greater saphenous vein at the saphenofemoral junction is patent without thrombus. Soft tissues: Mild subcutaneous edema. US/CV venous duplex [facility] [id number] IMPRESSION: No sonographic evidence of deep vein thrombosis.
[2023-11-24] MEDS: FUROsemide 10 mg/mL SDV 2mL 20 MG IVP (14:13)
[2023-11-24] MEDS: sodium hypochlorite 0.125% Btl 473 mL 1 APPLIC TOPICAL (14:14)
[2023-11-24 22:40] LABS: Vancomycin Trough 17.9 ug/mL (10-15)
[2023-11-25] VITALS (7 sets, daily range): BP systolic 132–155; BP diastolic 71–81; PULSE 96–102; RESP 16–18; TEMP 36.8–36.9; O2SAT 92–98
[2023-11-25] MEDS: piperacillin-tazobactam 3.375 GM in sodium chloride 0.9% (plus) 50 ML IV ×2 (01:40→08:33)
[2023-11-25 06:54] LABS: Alanine Aminotransferase 24 U/L (0-41); Albumin Level 1.6 g/dL (3.5-5.2); Alkaline Phosphatase 117 U/L (40-130); Anion Gap 8.8 (5-19); Aspartate Amino Transferase 59 U/L (0-40); Blood Urea Nitrogen 5 mg/dL (6-20); Calcium 6.8 mg/dL (8.5-10.5); Carbon Dioxide 21 mmol/L (22-29); Chloride 98 mmol/L (98-107); Creatinine Clr Calc Pharmacy 479.3013; Globulin 5.6 g/dL (1.3-4.6); Glucose 79 mg/dL (65-115); Osmolality Calculated 254 mOsm/kg (285-295); Potassium 3.8 mmol/L (3.5-5.1); Sodium 124 mmol/L (136-145); Total Bilirubin 6.8 mg/dL (0.15-1.2); Total Protein 7.2 g/dL (6.6-8.7)
[2023-11-25] MEDS: vancomycin 2,000 MG/400 ML PIGGYBACK 200 MG IV (06:59)
[2023-11-25] MEDS: morphine IR 15 mg Tablet PO ×2 (07:07→13:27)
[2023-11-25] MEDS: lactulose oral liq 20 gm/30 mL UDC 10 GM PO (08:32)
[2023-11-25] MEDS: potassium chloride ER 20 mEq Tablet 40 MEQ PO (08:32)
[2023-11-25] MEDS: spironolactone 25 mg Tablet PO (08:33)
[2023-11-25] MEDS: pantoprazole 40 mg SDV IVP (08:33)
[2023-11-25] MEDS: sennosides-docusate Tablet 1 TAB PO (08:33)
--- NOTE | 2023-11-25 09:22 | P.DS_ITS ---
Discharge Providers Date of Admission: 11/18/23 15:29 Date of Discharge: November 25, 2023 Attending Provider at Admission: Carmen Spears MD Attending Provider at Discharge: Carmen Spears MD Diagnoses at Discharge Discharge Diagnosis (1) Anasarca: Status: Acute (2) Venous stasis ulcer: Status: Acute Qualifiers: Venous stasis ulcer site: calf Varicose vein presence: without varicose veins Laterality: left Non-pressure ulcer stage: limited to breakdown of skin Qualified Code(s): I87.2 - Venous insufficiency (chronic) (peripheral); L97.221 - Non-pressure chronic ulcer of left calf limited to breakdown of skin (3) Wet gangrene: Status: Acute (4) Sepsis: Status: Acute Qualifiers: Sepsis type: sepsis due to unspecified organism Sepsis acute organ dysfunction status: unspecified Qualified Code(s): A41.9 - Sepsis, unspecified organism (5) Alcoholic hepatitis: Status: Acute Qualifiers: Ascites presence: unspecified Qualified Code(s): K70.10 - Alcoholic hepatitis without ascites (6) Cellulitis and abscess of left leg: Status: Acute (7) Coagulopathy: Status: Acute (8) Thrombocytopenia: Status: Acute Reason for Visit Reason for Visit: LEFT LEG PAIN Hospital Course Hospital Course 48-year-old male with history of alcohol-related hepatitis, liver cirrhosis, presented with chief complaint of worsening of venous stasis ulcer with devitalization of skin tissue, there was concern for necrotizing fasciitis CT scan was done before admission it did not show such changes, Dr. Mcbride was consulted who took patient for surgical debridement, patient remained afebrile, his leukocytosis improved with use of broad-spectrum antibiotics, he was given additional days of antibiotics in the hospital for better recovery of his wound, Dr. Mcbride was changing dressing on daily basis and recommended outpatient wound care referral instead of podiatry. Patient will get Augmentin and doxycycline along oxycodone at the time of discharge pedal wound care referral. Patient has anasarca from liver cirrhosis, his echo showed preserved ejection fraction with grade 2 diastolic function. No signs of DVT, he will receive lisinopril and spironolactone combination along lactulose. He is being discharged to his parents home, he was not able to self finance usp care at this point Physical Exam Narrative: Anasarca Pleasant cooperative No sign of hepatic encephalopathy Hemodynamically stable Left leg 3+ edema Dressing intact Discharge Data Studies Completed and Pending Completed Studies During Hospitalization Category Date Time Status CT lower leg LT wo con* [id number] Stat Cat Scan 11/18/23 15:06 Completed XR tibia fibula LT 2V [id number] Stat Exams 11/18/23 14:55 [place] [id number] Routine Ultrasound 11/24/23 13:06 Completed CV. echo complete* [id number] Routine Ultrasound 11/19/23 17:09 Completed Radiology Impressions Tibia/Fibula X-Ray 11/18/23 14:55 IMPRESSION: 1. Tibia and fibula are intact. 2. Diffuse soft tissue edema. Lower Extremity CT 11/18/23 15:06 IMPRESSION: 1. Diffuse soft tissue edema without discrete fluid collection or underlying acute osseous abnormality. Venous Duplex 11/24/23 13:06 IMPRESSION: No sonographic evidence of deep vein thrombosis. Laboratory Results WBC 14.55 10^3/uL (3.29-11.43) H 11/23/23 04:24 RBC 2.70 10^6/uL (3.85-5.65) L 11/23/23 04:24 Hgb 9.70 g/dL (11.27-16.99) L 11/23/23 04:24 Hct 29.4 % (37-53) L 11/23/23 04:24 MCV 108.9 fl (82-101) H 11/23/23 04:24 MCH 35.9 pg (27-33) H 11/23/23 04:24 MCHC 33.0 g/dL (30-55) 11/23/23 04:24 RDW 14.6 % (12.1-15.1) 11/23/23 04:24 Plt Count 40 10^3/cmm (157-399) L 11/23/23 04:24 MPV 11.4 fL (7.4-10.4) H 11/23/23 04:24 Neut % (Auto) 74.8 % 11/23/23 04:24 Lymph % (Auto) 12.6 % 11/23/23 04:24 [place] % (Auto) 9.8 % 11/23/23 04:24 Eos % (Auto) 1.0 % 11/23/23 04:24 Baso % (Auto) 0.5 % 11/23/23 04:24 Neut # (Auto) 10.87 10^3/uL (1.8-7.7) H 11/23/23 04:24 Lymph # (Auto) 1.8 10^3/uL (0.8-4.8) 11/23/23 04:24 [place] # (Auto) 1.4 10^3/uL (0.2-0.9) H 11/23/23 04:24 Eos # (Auto) 0.2 10^3/uL (0.0-0.8) 11/23/23 04:24 Baso # (Auto) 0.1 10^3/uL (0.0-0.1) 11/23/23 04:24 Nucleated RBC % (auto) 0 % 11/23/23 04:24 Nucleated RBCs # 0.0 /100WBC 11/23/23 04:24 ESR 37 mm/hr (0-10) H 11/18/23 14:12 PT 25.50 SECONDS (12.1-14.9) H 11/19/23 04:35 INR 2.23 (0.8-1.2) H 11/19/23 04:35 APTT 48.1 SECONDS (23.9-36.7) H 11/18/23 14:15 Sodium 124 mmol/L (136-145) L 11/25/23 06:21 Potassium 3.8 mmol/L (3.5-5.1) 11/25/23 06:21 Chloride 98 mmol/L (98-107) 11/25/23 06:21 Carbon Dioxide 21 mmol/L (22-29) L 11/25/23 06:21 Anion Gap 8.8 (5-19) 11/25/23 06:21 BUN 5 mg/dL (6-20) L 11/25/23 06:21 Creatinine 0.3 mg/dL (0.7-1.2) L 11/25/23 06:21 GFR Calculation 320.0 mL/min (90-130) H 11/25/23 06:21 Glucose 79 mg/dL (65-115) 11/25/23 06:21 Calculated Osmolality 254 mOsm/kg (285-295) L 11/25/23 06:21 Lactic Acid 3.8 mmol/L (0.5-2.2) H 11/18/23 14:12 Lactic Acid (Sepsis) 3.1 mmol/L (0.5-2.2) H 11/18/23 16:25 Calcium 6.8 mg/dL (8.5-10.5) L 11/25/23 06:21 Magnesium 1.7 mg/dL (1.7-2.3) 11/19/23 04:35 Total Bilirubin 6.8 mg/dL (0.15-1.2) H 11/25/23 06:21 AST 59 U/L (0-40) H 11/25/23 06:21 ALT 24 U/L (0-41) 11/25/23 06:21 Alkaline Phosphatase 117 U/L (40-130) 11/25/23 06:21 C-Reactive Protein 53.2 mg/L (0.0-4.9) H 11/18/23 14:12 Total Protein 7.2 g/dL (6.6-8.7) 11/25/23 06:21 Albumin 1.6 g/dL (3.5-5.2) L 11/25/23 06:21 Globulin 5.6 g/dL (1.3-4.6) H 11/25/23 06:21 Vancomycin Trough 17.9 ug/mL (10-15) H 11/24/23 22:17 Blood Type O Positive 11/18/23 16:25 Rho(D) Type Rh positive 11/18/23 16:25 Antibody Screen Negative 11/18/23 16:25 Vitals Last Vital Signs Temp 98.4 F 11/25/23 07:42 Pulse 100 11/25/23 07:42 Resp 18 11/25/23 07:42 BP 146/74 11/25/23 07:42 Pulse Ox 95 11/25/23 07:42 O2 Del Method Room Air 11/25/23 07:42 Discharge Plan Discharge Patient Disposition: Home Condition: Stable Prescriptions: New spironolactone 25 mg Tablet 25 mg PO DAILY Qty: 60 3RF furosemide 20 mg Tablet 40 mg PO DAILY@0800 Qty: 60 2RF amoxicillin-pot clavulanate 875-125 mg tablet 1 tab PO BID Qty: 14 0RF doxycycline hyclate 100 mg tablet 100 mg PO BID 7 Days Qty: 14 0RF oxycodone 5 mg tablet 5 mg PO BID PRN (Reason: pain) Qty: 14 0RF lactulose 10 gram packet 10 g PO DAILY PRN (Reason: constipation) Qty: 15 0RF Discharge Orders: Discharge Order (Routine); Ordered 11/25/23 Ordered By: Carmen Spears Referrals: WOUND CARE CLINIC, [Staff Physician] - 1-3 days Discharge Diet: Cardiac Discharge Activity: Use walker/crutches as instructed Patient Instructions: Spironolactone (By mouth), Furosemide (By mouth), Doxycycline (By mouth), Amoxicillin/Clavulanate Potassium (By mouth), Acute Wound Care (DC), Opioid Safety, Post Anesthesia Care Activity Restrictions/Additional Instructions: Instructions from Dr. Mcbride for left leg wound Keep current wrap clean, dry and intact Recommend wound care clinic follow-up early next week for continued care left leg wound. Use low-sodium diet less than 2 g/day, fluid stricter diet less than 1400 mL/day continue spironolactone and Lasix along potassium supplementation. Discharge Attestations Time Spent in Discharge Care*: greater than 30 min Quality Metrics Clinical Quality Measures [ No reported AMI, CVA or VTE this stay] Coding Level of Care Code Acute Code for Chg Fwd Diagnoses Anasarca R60.1 Venous stasis ulcer of left calf limited to breakdown of skin without varicose veins I87.2; L97.221 Venous stasis ulcer site: calf Varicose vein presence: without varicose veins Laterality: left Non-pressure ulcer stage: limited to breakdown of skin Wet gangrene I96 Sepsis, due to unspecified organism, unspecified whether acute organ dysfunction present A41.9 Sepsis type: sepsis due to unspecified organism Sepsis acute organ dysfunction status: unspecified Alcoholic hepatitis, unspecified whether ascites present K70.10 Ascites presence: unspecified Cellulitis and abscess of left leg L03.116; L02.416 Coagulopathy D68.9 Thrombocytopenia D69.6
--- NOTE | 2023-11-25 11:34 | P.PN_ITS ---
Subjective 2 Subjective: Patient seen bedside this a.m., able to bear more weight on his left leg. Family is bedside. Patient denies any subjective nausea, vomiting, fever, chills, shortness of breath or chest pain. Vitals/I&O/Wt Last Vital Signs Temp 98.4 F 11/25/23 07:42 Pulse 100 11/25/23 07:42 Resp 18 11/25/23 07:42 BP 146/74 11/25/23 07:42 Pulse Ox 95 11/25/23 07:42 O2 Del Method Room Air 11/25/23 07:42 11/24/23 11/25/23 11/25/23 22:59 06:59 14:59 Intake Total 760 / 2170 1100 / 3270 400 / 400 Output Total 600 / 1200 700 / 1900 Balance 160 / 970 400 / 1370 400 / 400 Weight last 48 hrs Weight 356 lb Weight 356 lb Physical Exam 2 Narrative: GENERAL: Patient is alert and oriented ?3 and in no acute distress. The following is a focused bilateral lower extremity exam. VASCULAR: Dorsalis pedis palpable +2 bilaterally. Posterior tibial arteries palpable bilaterally. Capillary refill time less than 3 seconds to the distal hallux bilaterally. Calf is supple and nontender proximally and distally. +2 edema to the left lower extremity. NEUROLOGICAL: Protective sensation intact 8/10 sites, tested with [place] monofilament to bilateral feet. DERMATOLOGICAL: Wound at the left lower one third anterior leg, left lateral foot and left posterior leg not exposed to fat layer, improving periwound erythema. MUSCULOSKELETAL: No crepitus with palpation of soft tissue of the left leg. Pain to palpation left leg wounds. Muscle strength +5 in all 3 planes bilateral foot and ankle. Data 11/23/23 04:24 11/25/23 06:21 A&P Assessment and plan (1) Alcoholic hepatitis: Qualifiers: Ascites presence: unspecified Qualified Code(s): K70.10 - Alcoholic hepatitis without ascites (2) Venous stasis ulcer: Qualifiers: Venous stasis ulcer site: calf Varicose vein presence: without varicose veins Laterality: left Non-pressure ulcer stage: limited to breakdown of skin Qualified Code(s): I87.2 - Venous insufficiency (chronic) (peripheral); L97.221 - Non-pressure chronic ulcer of left calf limited to breakdown of skin Plan 48-year-old male with cellulitis left leg and venous stasis ulceration left anterior and posterior leg Status post incision and debridement left leg performed 11/19/2023 White blood cell count trending downward Elevate left leg Apply Unna wrap, ABD, Kerlix, [place] Encouraged weightbearing and range of motion Clinical improvement appreciated to left leg with subsiding cellulitis, reduced erythema and edema. Patient being discharged on oral antibiotics per hospitalist, recommend wound care clinic follow-up. Attestations 2 Medical Necessity Statement*: Discharge planning Coding Level of Care Code Acute Code for Chg Fwd Diagnoses Alcoholic hepatitis, unspecified whether ascites present K70.10 Ascites presence: unspecified Venous stasis ulcer of left calf limited to breakdown of skin without varicose veins I87.2; L97.221 Venous stasis ulcer site: calf Varicose vein presence: without varicose veins Laterality: left Non-pressure ulcer stage: limited to breakdown of skin
== END 2023-11-25 14:29 | disposition home or self-care (01) | DRG 854 ==
LOC: ER 15:20 → MEDSURG 15:29
PROVIDERS: Internal Medicine; Podiatrist Foot & Ankle Surgery; Admitting Provider Internal Medicine; Emergency Provider Emergency Medicine; Visit Provider Internal Medicine
PROC: 0JBR0ZZ Excision of Left Foot Subcutaneous Tissue and Fascia, Open Approach (ICD-10-PCS; principal; 2023-11-19 13:45)
DX: A41.9 Sepsis, unspecified organism (principal); D68.4 Acquired coagulation factor deficiency; I96 Gangrene, not elsewhere classified; L97.222 Non-pressure chronic ulcer of left calf with fat layer exposed; L03.116 Cellulitis of left lower limb; Z68.42 Body mass index [BMI] 45.0-49.9, adult; E87.1 Hypo-osmolality and hyponatremia; K76.6 Portal hypertension; I87.8 Other specified disorders of veins; K70.10 Alcoholic hepatitis without ascites; D75.839 Thrombocytosis, unspecified; K70.30 Alcoholic cirrhosis of liver without ascites; E66.01 Morbid (severe) obesity due to excess calories
CPT/HCPCS: 36415; 36430; 73590; 73700; 80053; 80202; 83605; 83735; 85025; 85610; 85651; 85730; 86140; 86850; 86900; 86927; 87040; 87070; 87077; 87186; 93005; 93306; 93971; 96365; 96367; 97161; 99285; J0692; J1940; J2020; J2470; J2543; J2704; J3010; J3370; J3372; J3430; J7030; P9017; P9045

== ENCOUNTER 2023-12-04 15:58 | Emergency (ER) | payer SELFPAY ==
[2023-12-04 16:20] VITALS: BP 124/71; PULSE 100; RESP 16; TEMP 36.8; O2SAT 98; BMI 45.9
[2023-12-04 17:28] LABS: Basophils % 0.4 %; Eosinophils # 0.2 10^3/uL (0.0-0.8); Eosinophils % 2.2 %; Hematocrit 30.3 % (37-53); Lymphocytes # 1.6 10^3/uL (0.8-4.8); Lymphocytes % 15.4 %; Mean Corpuscular HGB Conc 31.7 g/dL (30-55); Mean Corpuscular Hemoglobin 34.9 pg (27-33); Mean Corpuscular Volume 110.2 fl (82-101); Mean Platelet Volume 11.6 fL (7.4-10.4); Monocytes # 1.2 10^3/uL (0.2-0.9); Neutrophils # 6.79 10^3/uL (1.8-7.7); Neutrophils % 66.7 %; Nucleated Red Blood Cells % 0 %; Platelet Count 54 10^3/cmm (157-399); Red Blood Count 2.75 10^6/uL (3.85-5.65); Red Cell Distribution Width 16.6 % (12.1-15.1); White Blood Count 10.18 10^3/uL (3.29-11.43)
[2023-12-04 17:32] LABS: Erythrocyte Sedimentation Rate 22 mm/hr (0-10)
[2023-12-04 17:45] LABS: Alanine Aminotransferase 29 U/L (0-41); Albumin Level 1.9 g/dL (3.5-5.2); Alkaline Phosphatase 123 U/L (40-130); Anion Gap 12.1 (5-19); Aspartate Amino Transferase 66 U/L (0-40); Blood Urea Nitrogen 7 mg/dL (6-20); C Reactive Protein 27.8 mg/L (0.0-4.9); Calcium 7.1 mg/dL (8.5-10.5); Carbon Dioxide 23 mmol/L (22-29); Chloride 98 mmol/L (98-107); Creatinine Clr Calc Pharmacy 354.8389; Globulin 6.2 g/dL (1.3-4.6); Glomerular Filtration Rate 229.6 mL/min (90-130); Glucose 152 mg/dL (65-115); Osmolality Calculated 271 mOsm/kg (285-295); Potassium 3.1 mmol/L (3.5-5.1); Sodium 130 mmol/L (136-145); Total Protein 8.1 g/dL (6.6-8.7)
[2023-12-04 17:46] LABS: Lactic Sepsis W/Reflex 3.5 mmol/L (0.5-2.2)
[2023-12-04 18:00] VITALS: BP 124/68; PULSE 98; O2SAT 100
--- NOTE | 2023-12-04 18:02 | ED_ITS ---
HPI - Wound/Laceration 2 General: Chief Complaint: Wound/Laceration Stated Complaint: Wound - sent by price Time Seen by Provider: 12/04/23 16:59 History of Present Illness: 48-year-old man with alcoholic cirrhosis and a left lower extremity treatment again and that it was too much for them to do in wound clinic. He says over the last 3 days he is had worsening pain. More drainage. No obvious signs of cellulitis. Dr. Singh had sent the patient here for evaluation for possible admission for OR debridement. Related Data Previous Rx's Medication Instructions Recorded amoxicillin 875 mg-potassium 1 tab PO BID #14 tabs 11/23/23 clavulanate 125 mg tablet furosemide 20 mg tablet 40 mg (2 x 20 mg) PO DAILY@0800 11/23/23 #60 tabs lactulose 10 gram oral packet 10 g PO DAILY PRN constipation #15 11/23/23 ea oxycodone 5 mg tablet 5 mg PO BID PRN pain #14 tabs 11/23/23 spironolactone 25 mg tablet 25 mg PO DAILY #60 tabs 11/23/23 cephalexin 500 mg capsule 500 mg PO BID 10 days #20 caps 12/04/23 oxycodone 5 mg tablet 5 mg PO Q8H PRN pain #30 tabs 12/04/23 Allergies Allergy/AdvReac Type Severity Reaction Status Date / Time No Known Allergies Allergy Verified 11/18/23 13:26 Review of Systems 2 Narrative: Constitutional symptoms: Negative except as documented in HPI. Skin symptoms: Negative except as documented in HPI. Eye symptoms: Negative except as documented in HPI. ENMT symptoms: Negative except as documented in HPI. Respiratory symptoms: Negative except as documented in HPI. Cardiovascular symptoms: Negative except as documented in HPI. Gastrointestinal symptoms: Negative except as documented in HPI. Genitourinary symptoms: Negative except as documented in HPI. Musculoskeletal symptoms: Negative except as documented in HPI. Neurologic symptoms: Negative except as documented in HPI. Psychiatric symptoms: Negative except as documented in HPI. Endocrine symptoms: Negative except as documented in HPI. PFSH ED 2 PFSH: Medical History Hyperbilirubinemia Generalized weakness Hypercoagulable state Alcoholic cirrhosis Wound infection Physical Exam 2 Narrative: EXAM NARRATIVE: General: Alert, no acute distress. Skin: Warm, dry. Jaundiced. There is a wound with black eschar along the foot. This is fairly large wound. I do not see any obvious signs of cellulitis at this time. He does have drainage that is likely from edema secondary to his cirrhosis. Head: Normocephalic, atraumatic. Neck: Supple, trachea midline. Eye: Extraocular movements are intact. Ears, nose, mouth and throat: mucosa moist. Cardiovascular: Regular, Normal peripheral perfusion. Respiratory: Lungs are clear to auscultation, respirations are non-labored, breath sounds are equal, Symmetrical chest wall expansion. Gastrointestinal: Soft, Nontender, Non distended Musculoskeletal: Normal ROM, no deformity. Neurological: Alert and oriented, No focal neurological deficit observed. Psychiatric: Cooperative, appropriate mood & affect. Course 2 Vital Signs: Vital signs: Vital Signs Temperature 98.2 F 12/04/23 16:20 Pulse Rate 98 12/04/23 18:00 Respiratory Rate 18 12/04/23 18:37 Blood Pressure 124/68 12/04/23 18:00 Pulse Oximetry 100 12/04/23 18:00 Oxygen Delivery Me thod Room Air 12/04/23 18:00 MDM - Wound/Laceration Medical Decision Making Lab Review: Laboratory results were reviewed and interpreted by myself the emergency room physician. No leukocytosis. Hemoglobin stable at 9.6. Platelets stable but low at 54. No renal failure. Bilirubin is slightly more elevated at 9. Consultation: I spoke with Dr. Santoro and Dr. Mcbride who are on-call for podiatry and have been following the patient. Dr. Dos Santos is on-call and feels that this does not need admitted for the OR at this time and he will see the patient in the clinic tomorrow at 11:30 AM. I discussed this with the family and they agree with the plan for now. If he worsens they will bring him back. I believe we are reaching a point where he will need some sort of nursing care. His parents are elderly and he can barely get up and down. We discussed this. They are willing to try to get him home and try to get him to clinic tomorrow. I am providing him with some more pain medications. I also discussed again with him the severity of his illness. That he has a low survival rate over the next 3 months and that likely the only solution to this is going to be liver transplant and that he will have to have been 6 months sober before he can even get on the list. Assessment and plan: Chronic leg wound Cirrhosis ? Oxycodone here in the emergency room. Writing into more pain medications for home. - Discharged home - Discussed plan with patient. Answered any questions. - Evaluation and treatment of this problem were appropriate in the emergency setting. Lab Data 12/04/23 17:16 12/04/23 17:16 Laboratory Results WBC 10.18 10^3/uL (3.29-11.43) 12/04/23 17:16 RBC 2.75 10^6/uL (3.85-5.65) L 12/04/23 17:16 Hgb 9.60 g/dL (11.27-16.99) L 12/04/23 17:16 Hct 30.3 % (37-53) L 12/04/23 17:16 MCV 110.2 fl (82-101) H 12/04/23 17:16 MCH 34.9 pg (27-33) H 12/04/23 17:16 MCHC 31.7 g/dL (30-55) 12/04/23 17:16 RDW 16.6 % (12.1-15.1) H 12/04/23 17:16 Plt Count 54 10^3/cmm (157-399) L 12/04/23 17:16 MPV 11.6 fL (7.4-10.4) H 12/04/23 17:16 Neut % (Auto) 66.7 % 12/04/23 17:16 Lymph % (Auto) 15.4 % 12/04/23 17:16 [place] % (Auto) 12.0 % 12/04/23 17:16 Eos % (Auto) 2.2 % 12/04/23 17:16 Baso % (Auto) 0.4 % 12/04/23 17:16 Neut # (Auto) 6.79 10^3/uL (1.8-7.7) 12/04/23 17:16 Lymph # (Auto) 1.6 10^3/uL (0.8-4.8) 12/04/23 17:16 [place] # (Auto) 1.2 10^3/uL (0.2-0.9) H 12/04/23 17:16 Eos # (Auto) 0.2 10^3/uL (0.0-0.8) 12/04/23 17:16 Baso # (Auto) 0.0 10^3/uL (0.0-0.1) 12/04/23 17:16 Nucleated RBC % (auto) 0 % 12/04/23 17:16 Nucleated RBCs # 0.0 /100WBC 12/04/23 17:16 ESR 22 mm/hr (0-10) H 12/04/23 17:16 Sodium 130 mmol/L (136-145) L 12/04/23 17:16 Potassium 3.1 mmol/L (3.5-5.1) L 12/04/23 17:16 Chloride 98 mmol/L (98-107) 12/04/23 17:16 Carbon Dioxide 23 mmol/L (22-29) 12/04/23 17:16 Anion Gap 12.1 (5-19) 12/04/23 17:16 BUN 7 mg/dL (6-20) 12/04/23 17:16 Creatinine 0.4 mg/dL (0.7-1.2) L 12/04/23 17:16 GFR Calculation 229.6 mL/min (90-130) H 12/04/23 17:16 Glucose 152 mg/dL (65-115) H 12/04/23 17:16 Calculated Osmolality 271 mOsm/kg (285-295) L 12/04/23 17:16 Lactic Acid 3.5 mmol/L (0.5-2.2) H 12/04/23 17:16 Calcium 7.1 mg/dL (8.5-10.5) L 12/04/23 17:16 Total Bilirubin 9.0 mg/dL (0.15-1.2) H* 12/04/23 17:16 AST 66 U/L (0-40) H 12/04/23 17:16 ALT 29 U/L (0-41) 12/04/23 17:16 Alkaline Phosphatase 123 U/L (40-130) 12/04/23 17:16 C-Reactive Protein 27.8 mg/L (0.0-4.9) H 12/04/23 17:16 Total Protein 8.1 g/dL (6.6-8.7) 12/04/23 17:16 Albumin 1.9 g/dL (3.5-5.2) L 12/04/23 17:16 Globulin 6.2 g/dL (1.3-4.6) H 12/04/23 17:16 No radiology studies performed this visit Discharge Plan Discharge Patient Disposition: Home Clinical Impression: Leg wound, left, Cirrhosis Condition: Stable Prescriptions: New oxycodone 5 mg tablet 5 mg PO Q8H PRN (Reason: pain) Qty: 30 0RF cephalexin 500 mg capsule 500 mg PO BID 10 Days Qty: 20 0RF No Action spironolactone 25 mg Tablet 25 mg PO DAILY Qty: 60 3RF furosemide 20 mg Tablet 40 mg PO DAILY@0800 Qty: 60 2RF amoxicillin-pot clavulanate 875-125 mg tablet 1 tab PO BID Qty: 14 0RF oxycodone 5 mg tablet 5 mg PO BID PRN (Reason: pain) Qty: 14 0RF lactulose 10 gram packet 10 g PO DAILY PRN (Reason: constipation) Qty: 15 0RF Discharge Orders: Discharge ED (Routine); Ordered 12/04/23 Ordered By: Doris Mirza Referrals: Jagdish Dooley MD [Primary Care Provider] - Deandre Santoro DPM [Physician] - 12/05/23 11:30 am Discharge Diet: Usual diet Discharge Activity: Increase activity as tolerated Patient Instructions: Opioid Safety, Pain Management Activity Restrictions/Additional Instructions: Thank you for choosing [facility] for your healthcare needs today. Please realize this is an emergency room and that we are providing you with a medical screening exam and this may not be complete and all inclusive of all the testing and or work up that you may need to determine your ailment or severity of your illness. You have been screened and evaluated and felt safe for discharge. Health conditions do change or evolve sometimes and as such it is important that you follow up with your Primary Doctor to be re checked, 3-5 days is a general good time frame for follow up. You are always welcome to return to the ED for re assessment if your symptoms are worsening or you have new concerns Coding Level of Care Code ED Route Manager for Yareli Morse
[2023-12-04 18:26] VITALS: RESP 18
[2023-12-04] MEDS: oxyCODONE 5 mg IR Tab/Cap PO ×2 (18:26→18:37)
[2023-12-04 18:37] VITALS: RESP 18
[2023-12-04 19:13] LABS: Reflex Lactate Order REFLEX LACTIC ORDERD
[2023-12-04 19:26] VITALS: BP 109/64; PULSE 91; O2SAT 97
== END 2023-12-04 19:27 | disposition home or self-care (01) ==
PROVIDERS: Emergency Provider Emergency Medicine; PCP Family Medicine
DX: S81.802A Unspecified open wound, left lower leg, initial encounter (principal); X58.XXXA Exposure to other specified factors, initial encounter; K70.30 Alcoholic cirrhosis of liver without ascites
CPT/HCPCS: 80053; 83605; 85025; 85651; 86140; 87040; 99283

== ENCOUNTER 2023-12-11 15:30 | Outpatient (CLI) | payer SELFPAY ==
[2023-12-11 17:00] LABS: Basophils # 0.1 10^3/uL (0.0-0.1); Basophils % 0.4 %; Eosinophils # 0.2 10^3/uL (0.0-0.8); Eosinophils % 1.1 %; Hematocrit 31.8 % (37-53); Lymphocytes # 1.7 10^3/uL (0.8-4.8); Lymphocytes % 12.9 %; Mean Corpuscular HGB Conc 32.1 g/dL (30-55); Mean Corpuscular Hemoglobin 35.5 pg (27-33); Mean Corpuscular Volume 110.8 fl (82-101); Mean Platelet Volume 11.3 fL (7.4-10.4); Monocytes # 1.3 10^3/uL (0.2-0.9); Monocytes % 9.8 %; Neutrophils # 10.01 10^3/uL (1.8-7.7); Neutrophils % 74.4 %; Nucleated Red Blood Cells % 0.1 %; Platelet Count 58 10^3/cmm (157-399); Red Blood Count 2.87 10^6/uL (3.85-5.65); Red Cell Distribution Width 18.4 % (12.1-15.1); White Blood Count 13.47 10^3/uL (3.29-11.43)
[2023-12-11 17:23] LABS: Ammonia 46 umol/L (16-60)
[2023-12-11 17:38] LABS: Anion Gap 12.2 (5-19); Blood Urea Nitrogen 7 mg/dL (6-20); Calcium 7.1 mg/dL (8.5-10.5); Carbon Dioxide 24 mmol/L (22-29); Chloride 97 mmol/L (98-107); Glomerular Filtration Rate 229.6 mL/min (90-130); Glucose 98 mg/dL (65-115); Osmolality Calculated 268 mOsm/kg (285-295); Potassium 3.2 mmol/L (3.5-5.1); Sodium 130 mmol/L (136-145)
[2023-12-11 20:54] LABS: Tumor Marker Alpha Fetoprotein 2.3 ng/mL (0-8.3)
[2023-12-12 16:32] LABS: Alanine Aminotransferase 27 U/L (0-41); Albumin Level 1.7 g/dL (3.5-5.2); Alkaline Phosphatase 121 U/L (40-130); Aspartate Amino Transferase 57 U/L (0-40); Globulin 6.4 g/dL (1.3-4.6); Total Protein 8.1 g/dL (6.6-8.7)
[2023-12-12 16:50] LABS: Total Bilirubin 8.5 mg/dL (0.15-1.2)
== END 2023-12-11 15:31 | disposition home or self-care (01) ==
PROVIDERS: PCP Family Medicine
DX: K70.30 Alcoholic cirrhosis of liver without ascites (principal)
CPT/HCPCS: 36415; 80048; 80076; 82105; 82140; 85025; 85210; 86140; 86705; 86706; 86709; 86803; 87340